=== PATIENT | female | born 1975 | race Caucasian/White ===

== ENCOUNTER 2019-03-07 08:40 | Inpatient (IN) | payer OTHER ==
[~2019-03-07] VITALS: Ht 160 cm; Wt 99.8 kg
[~2019-03-07 08:40] MED LIST: BUPIVACAINE 0.25% 30ML SDV INJ ONE; BUSPIRONE HCL5 MG PO; DIAZEPAM5 MG PO; FLUTICASONE PRO15 GM; PANTOPRAZOLE SO40 MG PO; TOPAMAX25 MG; TRAZODONE HCL100 MG; ZOLOFT50 MG PO
--- OUTSIDE RECORDS SUMMARY | 2019-03-07 08:51 | XMS REPORT | Clinical Summary ---
Author Author [facility] Address Unknown Phone Unavailable Care Team Providers Care Interventional Radiology Rn Name Role Phone Sharpless PCP Allergies Comments Active Allergy Reactions Severity Noted Date Sulfamethoxazole-Trimetho Hives High 11/02/2016 prim Ciprofloxacin Anaphylaxis High 11/02/2016 Crab Swelling 03/22/2017 Morphine Hives 09/13/2017 Penicillins Hives High 10/22/2016 Ceftriaxone Hives 11/05/2016 Sulfa (Sulfonamide Hives 03/22/2017 Antibiotics) Medications End Date Status Medication Sig Dispensed Refills Start Date Active vitamin Take 1 tablet 0 w/hwhmwve-dfjf-satrfu by mouth ( PLUS) 27 mg daily. iron- 1 mg Tab Active sertraline (ZOLOFT) 50 MG 200 mg by 0 tablet Subretinal route daily . Active clonazePAM (KLONOPIN) 1 Take 1 mg by 0 MG tablet mouth 3 (three) times daily as needed for Anxiety. Active traZODone (DESYREL) 50 MG Take 50 mg by 0 tablet mouth nightly . Active butalbital-acetaminophen- Take 1 tablet 0 caffeine (FIORICET, by mouth ESGIC) 50-325-40 mg per every 6 (six) tabletIndications: hours as migraine needed for Headaches. 09/15/2018 oxybutynin (DITROPAN) 5 Take 1 tablet 90 tablet 0 09/15/201 MG tablet (5 mg total) 7 by mouth 3 (three) times daily. Active Problems Problem Noted Date Lower abdominal pain 09/13/2017 Pulmonary emboli 05/24/2017 Fever, unspecified fever cause 05/24/2017 Preeclampsia in period 05/20/2017 Intraoperative bladder injury 05/06/2017 Abdominal pain 04/22/2017 Cephalalgia 11/27/2016 Overview: Overview: Current meds: Propanolol TID 11/27:pt called for complains of frequent migraine headache (every day), worsening sinus allergies and occasional nosebleeds. I discussed using saline nasal spray and flonase in addition to Zyrtec. I ordered fiorecet prn and propanolol 20mg TID for migraine ppx. If no improvement in migraine MAHMOOD frequency, then we will refer her to neurology. For nosebleed, she was advised to hold pressure, apply ice, use humidifier and moisturize nose. MFM note: Patient reports improving symptoms, only has headache every month. Plan to continue Propanolol Allergic rhinitis, seasonal 11/27/2016 Obesity with body mass index 30 or greater 10/24/2016 Overview: Overview: Limit wt gain in preg Depression, major, recurrent 10/24/2016 Overview: Overview: Current meds: Zoloft 50mg daily, Atarax PRN Reports stress related to custody of her children, was on zoloft 150mg, which was weaned down to 50mg daily prior to , self dc'd all meds (Klonopin 1.5mg daily, zoloft 50mg daily) at +UPT S/p MFM counseling-- Started on Zoloft 50mg daily, and atarax prn. Avoid Klonopin use in . Ordered and psychiatry consult 11/17: reports depressed mood, denies SI/HI, on zoloft 50mg daily; today increased her zoloft to 75 mg daily. Discussed that we would support titration of her zoloft dose if she has suboptimal response to this increased dose in about 4-6weeks. 03/11 MFM: Pt still with multiple stressors, seeing new counselor on Thursday. Optimistic that that visit will be productive. No change in Rx Chronic hypertension complicating or reason for care during 10/24/2016 Overview: Overview: Noted to have SBP in 140s at her initial visit. Watch BP closely. Baseline labs ordered. If mild range BP noted on future visit, order BP monitor and home BP monitoring On baby ASA testing plan to be determined later MFM: 03/11 BPs in normal range; On ASA Family History Medical History Relation Name Comments Depression Father Hypertension Father Kidney disease Father Liver disease Father Stroke Father Thyroid cancer Father Cancer Mother Thyroid cancer Sister Relation Name Status Comments Father Mother Sister Social History Date Tobacco Use Types Packs/Day Years Used Never Smoker Smokeless Tobacco: Never Used Alcohol Use Drinks/Week oz/Week Comments No Sex Assigned at Date Recorded Not on file Industry Job Start Date Occupation Not on file Not on file Not on file Travel End Travel History Travel Start No recent travel history available. Last Filed Vital Signs Not on file Plan of Treatment Not on file Results Not on fileafter 03/06/2018 Insurance Payer Benefit Subscriber ID Type Phone Address Plan / Group [employer] - [employer] CARE C[employer] xxxxxxxxxxx HMO/POS HMO/POS/OP EN ACCESS Advance Directives For more information, please contact: [facility] [address] [place] [phone] Date Inactivated Comments Code Status Date Activated 09/15/2017 8:54 PM Full Code 09/13/2017 4:44 AM This code status was determined by: Patient 05/26/2017 3:09 PM Full Code 05/24/2017 6:41 PM This code status was determined by: Patient 05/13/2017 3:28 PM Full Code 05/06/2017 12:23 PM This code status was determined by: Patient 04/23/2017 3:23 AM Full Code 04/22/2017 7:01 PM This code status was determined by: Patient 04/06/2017 3:38 AM Full Code 04/05/2017 11:53 PM This code status was determined by: Patient
--- OUTSIDE RECORDS SUMMARY | 2019-03-07 08:51 | XMS REPORT | Clinical Summary ---
Author Author [facility] Organization [place] [facility] Address Unknown Phone Unavailable Care Team Providers Care Mesh Cutter Name Role Phone Asked, No Pcp PCP Unavailable Allergies Comments Active Allergy Reactions Severity Noted Date Sulfamethoxazole-Trimetho 07/22/2018 prim Ciprofloxacin 07/22/2018 Levofloxacin 07/22/2018 Penicillins 07/22/2018 Ceftriaxone 07/22/2018 JUST CRABS Shellfish Derived 07/22/2018 Medications End Date Status Medication Sig Dispensed Refills Start Date Active benzonatate (TESSALON) Take 1 0 100 MG capsule capsule by 9 mouth 3 (three) times a day as needed. Active busPIRone (BUSPAR) 15 MG Take 1 tablet 5 tablet by mouth 2 9 (two) times a day. Active diazePAM (VALIUM) 5 MG Take 1 tablet 0 tablet by mouth 3 9 (three) times a day as needed. Active fluticasone (FLONASE) 50 1 spray by 7 mcg/actuation nasal spray Each Nare 9 route 2 (two) times a day. Active gabapentin (NEURONTIN) Take 1 0 300 mg capsule capsule by 9 mouth 3 (three) times a day. Active lidocaine (LIDODERM) 5 % Place 1 patch 11 on the skin 9 daily as needed. Active metoprolol succinate XL Take 25 mg by 0 (TOPROL-XL) 25 mg 24 hr mouth daily. tablet Active pantoprazole (PROTONIX) Take 1 tablet 1 40 MG EC tablet by mouth 9 daily. Active XARELTO 20 mg tablet Take 1 tablet 1 by mouth 9 daily. Active sertraline (ZOLOFT) 100 Take 2 4 MG tablet tablets by 8 mouth every morning. Active topiramate (TOPAMAX) 25 Take 25 mg by 0 MG tablet mouth 2 (two) times a day. Active traZODone (DESYREL) 50 MG Take 1 tablet 1 tablet by mouth 9 nightly. 01/31/2019 midodrine (PROAMATINE) Take 1 tablet 90 tablet 0 2.5 MG tablet (2.5 mg 9 total) by mouth 3 (three) times a day for 30 days. 02/01/2019 fludrocortisone Take 1 tablet 30 tablet 0 (FLORINEF) 0.1 mg tablet (0.1 mg 9 total) by mouth daily for 30 days. Active Problems Problem Noted Date Dizziness 12/29/2018 Encounters Care Team Description Date Type Specialty Jean Paul Ricci MD Al-Lahiq, Maha, MD Dizziness (Primary Dx) 12/29/2018 Emergency General Surgery - 01/01/2019 Areli Ledezma MD Other chest pain (Primary Dx) 07/22/2018 Emergency Emergency Medicine after 03/06/2018 Social History Date Tobacco Use Types Packs/Day Years Used Never Smoker Smokeless Tobacco: Never Used Alcohol Use Drinks/Week oz/Week Comments No Sex Assigned at Date Recorded Not on file Industry Job Start Date Occupation Not on file Not on file Not on file Travel End Travel History Travel Start No recent travel history available. Last Filed Vital Signs Time Taken Vital Sign Reading 01/01/2019 11:07 AM CDT Blood Pressure 105/54 01/01/2019 11:07 AM CDT Pulse 76 01/01/2019 11:07 AM CDT Temperature 36.9 C (98.4 F) 01/01/2019 11:07 AM CDT Respiratory Rate 16 01/01/2019 11:07 AM CDT Oxygen Saturation 92% - Inhaled Oxygen - Concentration 12/29/2018 12:59 PM CDT Weight 99.8 kg (220 lb) 12/29/2018 12:59 PM CDT Height 160 cm (5' 3") 12/29/2018 12:59 PM CDT Body Mass Index 38.97 Plan of Treatment Health Maintenance Due Date Last Done Comments CERVICAL CANCER SCREENING 1997 INFLUENZA VACCINE 05/19/2019 Procedures Comments Procedure Name Priority Date/Time Associated Diagnosis HC COMPLETE BLD COUNT Routine 12/31/2018 W/AUTO DIFF 6:[address] INTERNAL AUDITORY Routine 12/30/2018 CANALS / POSTERIOR FOSSA 2:37 PM CDT WO CONTRAST ECHOCARDIOGRAM 2D Routine 12/30/2018 COMPLETE W MMODE SPECTRAL 9:16 AM CDT COLOR DOPPLER (50121) HCG QUALITATIVE, URINE Routine 12/29/2018 SCREEN 4:27 PM CDT URINALYSIS SCREEN AND Routine 12/29/2018 MICROSCOPY, WITH REFLEX 4:27 PM CDT TO CULTURE URINE CULTURE Routine 12/29/2018 4:[address] HEAD WO CONTRAST STAT 12/29/2018 3:[address] ANGIOGRAM PE CHEST STAT 12/29/2018 3:52 PM CDT RESPIRATORY PATHOGEN Routine 12/29/2018 PANEL 3:18 PM CDT INFLUENZA ANTIGEN TEST, Routine 12/29/2018 REFLEX NEGATIVE TO RPP 3:18 PM CDT CREATINE KINASE, TOTAL STAT 12/29/2018 (CPK) 2:49 PM CDT ESTIMATED GFR STAT 12/29/2018 2:49 PM CDT B NATRIURETIC PEPTIDE STAT 12/29/2018 2:49 PM CDT TROPONIN STAT 12/29/2018 2:49 PM CDT COMPREHENSIVE METABOLIC STAT 12/29/2018 PANEL 2:49 PM CDT PARTIAL THROMBOPLASTIN STAT 12/29/2018 TIME (PTT) 2:49 PM CDT PROTHROMBIN TIME WITH INR STAT 12/29/2018 2:49 PM CDT HC COMPLETE BLD COUNT STAT 12/29/2018 W/AUTO DIFF 2:49 PM CDT ECG ED PRELIMINARY Routine 12/29/2018 INTERPRETATION 2:08 PM CDT ECG 12-LEAD STAT 12/29/2018 12:59 PM CDT TROPONIN Timed 07/22/2018 3:11 PM CDT D-DIMER STAT 07/22/2018 12:35 PM CDT TROPONIN STAT 07/22/2018 12:35 PM CDT ESTIMATED GFR STAT 07/22/2018 12:35 PM CDT B NATRIURETIC PEPTIDE STAT 07/22/2018 12:35 PM CDT CREATINE KINASE, TOTAL STAT 07/22/2018 (CPK) 12:35 PM CDT COMPREHENSIVE METABOLIC STAT 07/22/2018 PANEL 12:35 PM CDT PARTIAL THROMBOPLASTIN STAT 07/22/2018 TIME (PTT) 12:35 PM CDT PROTHROMBIN TIME WITH INR STAT 07/22/2018 12:35 PM CDT HC COMPLETE BLD COUNT STAT 07/22/2018 W/AUTO DIFF 12:35 PM CDT XR CHEST 1 VW PORTABLE STAT 07/22/2018 12:00 PM CDT ECG ED PRELIMINARY Routine 07/22/2018 INTERPRETATION 11:33 AM CDT ECG 12-LEAD STAT 07/22/2018 11:07 AM CDT after 03/06/2018 Results * CBC with platelet and differential (12/31/2018 6:00 AM CDT) Only the most recent of 3 results within the time period is included. WBC 10.13 4.50 - 11.00 k/uL [facility] RBC 4.06 (L) 4.20 - 5.50 m/uL [facility] HGB 12.2 12.0 - 16.0 g/dL [facility] HCT 37.6 37.0 - 47.0 % [facility] MCV 92.6 82.0 - 100.0 fL [facility] MCH 30.0 27.0 - 34.0 pg [facility] MCHC 32.4 31.0 - 37.0 g/dL [facility] RDW - SD 49.7 37.0 - 55.0 fL [facility] MPV 9.9 8.8 - 13.2 fL [facility] Platelet count 232 150 - 400 k/uL [facility] Nucleated RBC 0.00 /100 WBC [facility] Neutrophils 54.1 39.0 - 69.0 % [facility] Lymphocytes 34.7 25.0 - 45.0 % [facility] Monocytes 5.6 0.0 - 10.0 % [facility] Eosinophils 3.4 0.0 - 5.0 % [facility] Basophils 0.7 0.0 - 1.0 % [facility] Specimen Blood Performing Organization Address City/State/Zipcode Phone Number [facility] [place] [id number] [place] [address] [place] [address] PATHOLOGY AND GENOMIC MEDICINE [facility] [address] [place] [address] * CT Internal Auditory Canals / Posterior Fossa Wo Contrast (12/30/2018 2:37 PM CDT) Specimen Narrative Performed At EXAMINATION:CT INTERNAL AUDITORY CANALS POSTERIOR FOSSA WO CONTRAST [facility] CLINICAL HISTORY:Hearing lossconductive COMPARISON:None. FINDINGS: 1.There is no abnormality demonstrated in the external auditory canals or in the inner ear structures. The mastoids are clear. 2.There is an unusual appearance of the spiculated bone or calcification along the medial aspect of the head of the malleus and medial aspect of the body of the incus bilaterally. This appearance is very symmetric but definitely atypical. The etiology and significance of this appearance is not known but could explain a conductive hearing loss.. This could indicate suspensory ligament ossification. 3.There is thinning of the superior aspects of the superior semicircular canals bilaterally with questionable dehiscence in the area of the groove for the superior petrosal sinus on the left side.. 4.There is no other significant finding. IMPRESSION: Unusual appearance of the ossicles symmetrically, bilaterally of uncertain etiology. Question of superior 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 [facility]-[id number] Procedure Note Hm Interface, Radiology Results Incoming - 12/30/2018 5:32 PM CDT EXAMINATION: CT INTERNAL AUDITORY CANALS POSTERIOR FOSSA WO CONTRAST CLINICAL HISTORY: Hearing loss conductive COMPARISON: None. FINDINGS: 1. There is no abnormality demonstrated in the external auditory canals or in the inner ear structures. The mastoids are clear. 2. There is an unusual appearance of the spiculated bone or calcification along the medial aspect of the head of the malleus and medial aspect of the body of the incus bilaterally. This appearance is very symmetric but definitely atypical. The etiology and significance of this appearance is not known but could explain a conductive hearing loss.. This could indicate suspensory ligament ossification. 3. There is thinning of the superior aspects of the superior semicircular canals bilaterally with questionable dehiscence in the area of the groove for the superior petrosal sinus on the left side.. 4. There is no other significant finding. IMPRESSION: Unusual appearance of the ossicles symmetrically, bilaterally of uncertain etiology. Question of superior 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 [facility]-[id number] Performing Organization Address City/State/Zipcode Phone Number [address] [address] [place] [address] * Echocardiogram complete w contrast and 3D if needed (12/30/2018 9:16 AM CDT) AoV Area, Vmax 3.08 cm2 [facility] AoV Area, VTI 3.48 cm2 [facility] AoV Mean PG 2.65 mmHg [facility] AoV Peak PG 5.69 mmHg [facility] AoV Vmax 1.19 m/s [facility] AoV VTI 0.18 m [facility] BSA [place] 2.18 m2 [facility] BSA 2.01 m2 [facility] IVS,d 0.86 cm [facility] IVS/LVPW,2D 0.92 [facility] LV,d 3.77 cm [facility] LV EF,2D 69.12 % [facility] LV EF,A2C 54.60 % [facility] LV EF,A4C 66.70 % [facility] LV EF,BP 62.73 % [facility] [place],d A2C 6.85 cm [facility] [place],d A4C 7.57 cm [facility] [place],s A2C 6.05 cm [facility] [place],s A4C 6.15 cm [facility] LV,s 2.55 cm [facility] LV SV,A2C 36.50 % [facility] LV SV,A4C 45.06 % [facility] LV SV,BP 44.24 % [facility] LV Vol,d A2C 66.85 mL [facility] LV Vol,d A4C 67.55 ml [facility] LV Vol,d BP 70.53 ml [facility] LV Vol,s A2C 30.35 mL [facility] LV Vol,s A4C 22.49 ml [facility] LV Vol,s BP 26.28 nl [facility] LVOT area 3.05 cm2 [facility] LVOT Diam,S 1.97 cm [facility] LVOT Vmax 1.20 m/s [facility] LVOT VTI 0.21 m [facility] LVPWD,d 0.93 cm [facility] MV E A ratio 0.88 [facility] AoV area i VTI 1.73 cm2/m2 [facility] BSA [place] LV SI MOD BP 21.97 ml/m2 [facility] BSA [place] LV Vol Index s 35.02 ml/m2 [facility] bpmod BSA [place] PV Vmn 13.05 m/s [facility] BMI 38.97 kg/m2 [facility] E wave 188.09 msec [facility] decelartion time MV Peak A Fan 0.77 m/s [facility] MV valve area p 4.03 cm2 [facility] 1/2 method MV Peak E Fan 0.68 m/s [facility] MV stenosis 54.55 ms [facility] pressure 1/2 time AV LVOT peak 5.74 mmHg [facility] gradient LV SYS VOL 23.38 ml [facility] LV PARKER VOL 60.71 ml [facility] LA area s A4C 16.02 cm2 [facility] LV SI Teich 2D 18.54 ml/m2 [facility] LV SV Teich 2D 37.33 ml [facility] LV Vol s Teich 23.38 ml [facility] PSAX LVOT SI 31.56 ml/m2 [facility] BSA [place] 2.16 m2 [facility] AoV Cusp sep 1.47 [facility] AoV Vmn 0.76 [facility] IVS s 2D 1.47 [facility] LV FS Teich 2D 32.41 [facility] MV AE ratio 1.13 [facility] LA Ao Ratio 1.27 [facility] Mmode LV FS Cube 2D 32.41 [facility] LVOT Vmn 0.81 [facility] Pt Size 160.02 [facility] Pt Wt 99.79 [facility] PV AT 122.74 msec [facility] Aov area Vmn 3.25 cm2 [facility] LVOT mean grad 2.91 mmHg [facility] AoV area I VMN 1.61 cm2/m2 [facility] bsa IVS pct thck 70.96 % [facility] PLAX LV SI Cube 2D 18.36 ml/m2 [facility] LV SV Cube 2D 36.97 ml [facility] LV vol d cube 53.50 ml [facility] 2D LV vol s cube 16.52 ml [facility] 2D LVPW pct thck 51.82 % [facility] PLAX LVPW s PLAX 1.42 cm [facility] MV Decel slope 3.63 m/s2 [facility] Velocity Ratio 1.01 m/s [facility] (V1/V2) EF 61.49 % [facility] E/A ratio 0.88 [facility] LV Systolic 15.10 mL/m2 [facility] Volume Index LV Diastolic 33.26 mL/m2 [facility] Volume Index LA volume 52.00 cm3 [facility] LA Volume Index 25.87 mL/m2 [facility] LA Area d A4C 36 cm2 [facility] LA diam s 3.50 cm [facility] Aortic Root 2.80 cm [facility] D E excurs 1.20 [facility] E f slope 0.06 [facility] E prime lat 0.12 [facility] E isamar sept 0.08 [facility] PV acc T slope 7.00 [facility] Specimen Narrative Performed At [facility] Left ventricular systolic function is normal. Left Ventricular ejection fraction is 55 - 60%. Spectral Doppler shows impaired relaxation pattern of left ventricular diastolic filling. Doppler examination of the AV,MV,TR and PV did mot show any significant valvular regurgitation or stenosis. Normal right ventricular size and global function. Performing Organization Address City/State/Zipcode Phone Number [facility] [address] [place] [address] * Urinalysis screen and microscopy, with reflex to culture (12/29/2018 4:27 PM CDT) Specimen site Clean catch [facility] Color, UA Yellow [facility] Appearance, UA Slightly-Cloudy [facility] Specific 1.023 1.001 - 1.035 [place] gravity, UA [facility] pH, UA 6.0 5.0 - 8.5 [facility] Protein, UA Negative Negative [facility] Glucose, UA Negative Negative [facility] Ketones, UA Negative Negative [facility] Bilirubin, UA Negative Negative [facility] Blood, UA Small (A) Negative [facility] Nitrite, UA Negative Negative [facility] Urobilinogen, Negative <2.0 [facility] Leukocyte Negative Negative [place] esterase, UA [facility] Epithelial Many /HPF [place] cells, UA [facility] WBC, UA 0-5 0 - 4 /HPF [facility] RBC, UA 11-20 (H) 0 - 5 /HPF [facility] Bacteria, UA None seen None seen [facility] Yeast, UA None seen [facility] Yeast with None seen [place] [facility] Specimen Urine Performing Organization Address [facility] Phone Number [address] [place] [address] PATHOLOGY AND GENOMIC MEDICINE [address] * hCG qualitative, urine screen (12/29/2018 4:27 PM CDT) hCG Negative Negative [place] qualitative, Comment: [facility] urine The manufacturers stated [facility] sensitivity of HcG test for serum is >/=10 mIU/ml and urine is >/=20mIU/ml. Specimen Urine Performing Organization Address [facility] Cent[facility]ode Phone Number [address] [place] [address] PATHOLOGY AND GENOMIC MEDICINE [address] * Urine culture (12/29/2018 4:27 PM CDT) Urine culture SEE COMMENTComment: [place] Bacteriuria screen negative. [facility] Specimen Urine Performing Organization Address City/State/Zipcode [place] [address] [place] [address] PATHOLOGY AND GENOMIC MEDICINE [facility] [address] [place] [address] [facility] * CT Angiogram Pe Chest (12/29/2018 3:52 PM CDT) Specimen Narrative Performed At [facility] PE CHEST CLINICAL HISTORY: hx of PE on Xarelto with SOBCP TECHNIQUE: CT angiographic images of the chest were obtained during intravenous administration of iodinated contrast. Computerized reformatted images and 3-D MIP images were also obtained and archived (CT pulmonary embolus protocol). CT imaging was performed with iterative reconstruction techniques and/or automated exposure control to reduce radiation dose. COMPARISON: July 22, 2018 chest x-ray FINDINGS: Pulmonary arteries are adequately opacified and there are no filling defects identified to suggest acute pulmonary embolus. The thoracic aorta is of normal caliber. There is no identifiable coronary artery calcification. There are no pleural or pericardial effusions. No pulmonary infiltrates or nodules. Limited scans through the upper abdomen demonstrate clips from prior cholecystectomy. IMPRESSION: No evidence of acute pulmonary embolus or other acute finding. [id number] Procedure Note Interface, Radiology Results Incoming - 12/29/2018 4:12 PM CDT EXAMINATION: CT ANGIOGRAM PE CHEST CLINICAL HISTORY: hx of PE on Xarelto with SOB CP TECHNIQUE: CT angiographic images of the chest were obtained during intravenous administration of iodinated contrast. Computerized reformatted images and 3-D MIP images were also obtained and archived (CT pulmonary embolus protocol). CT imaging was performed with iterative reconstruction techniques and/or automated exposure control to reduce radiation dose. COMPARISON: July 22, 2018 chest x-ray FINDINGS: Pulmonary arteries are adequately opacified and there are no filling defects identified to suggest acute pulmonary embolus. The thoracic aorta is of normal caliber. There is no identifiable coronary artery calcification. There are no pleural or pericardial effusions. No pulmonary infiltrates or nodules. Limited scans through the upper abdomen demonstrate clips from prior cholecystectomy. IMPRESSION: No evidence of acute pulmonary embolus or other acute finding. [id number] Performing Organization Address City/State/Zipcode Phone Number [facility] [address] [place] [address] * CT Head Wo Contrast (12/29/2018 3:52 PM CDT) Specimen Narrative Performed At Examination: CT HEAD WO CONTRAST [facility] Clinical History: persistent vertigo Comparison: NONE Technique: Multiple axial CT images of the brain are obtained without the use of intravenous contrast. CT scans are performed using radiation dose reduction techniques. Technical factors are evaluated and adjusted to ensure appropriate moderation of exposure. Automated dose management technology is applied to adjust radiation dose to minimize exposure, while achieving a diagnostic image. FINDINGS: The visualized paranasal sinuses demonstrates bilateral maxillary sinusitis. The cardiac silhouette is normal in size. The pulmonary vasculature is within normal limits. The lung zones have no focal area of consolidation. There is no pleural effusion or pneumothorax. IMPRESSION: 1. There is no acute cardiopulmonary disease. . The mastoid air cells are well aerated. The globes and optic nerves are unremarkable. The ventricles are symmetrical. There is no mass effect or any midline shift. There is no evidence of any extra-axial fluid collection. There is no parenchymal hemorrhage or mass lesion. There is maintenance of the ball-white junction. The posterior fossa does not demonstrate any masses. IMPRESSION: 1. There Is no acute intracranial abnormality. [id number] Procedure Note Interface, Radiology Results Incoming - 12/29/2018 4:10 PM CDT Examination: CT HEAD WO CONTRAST Clinical History: persistent vertigo Comparison: NONE Technique: Multiple axial CT images of the brain are obtained without the use of intravenous contrast. CT scans are performed using radiation dose reduction techniques. Technical factors are evaluated and adjusted to ensure appropriate moderation of exposure. Automated dose management technology is applied to adjust radiation dose to minimize exposure, while achieving a diagnostic image. FINDINGS: The visualized paranasal sinuses demonstrates bilateral maxillary sinusitis. The cardiac silhouette is normal in size. The pulmonary vasculature is within normal limits. The lung zones have no focal area of consolidation. There is no pleural effusion or pneumothorax. IMPRESSION: 1. There is no acute cardiopulmonary disease. . The mastoid air cells are well aerated. The globes and optic nerves are unremarkable. The ventricles are symmetrical. There is no mass effect or any midline shift. There is no evidence of any extra-axial fluid collection. There is no parenchymal hemorrhage or mass lesion. There is maintenance of the ball-white junction. The posterior fossa does not demonstrate any masses. IMPRESSION: 1. There Is no acute intracranial abnormality. [id number] Performing Organization Address City/State/Zipcode Phone Number [facility] [address] [place] [address] * Respiratory pathogen panel (12/29/2018 3:18 PM CDT) Pathologist [facility] Respiratory Negative for all pathogens [place] pathogen panel tested: [facility] Negative for Adenovirus [facility] Negative for Coronavirus HKU1 Negative for Coronavirus NL63 Negative for Coronavirus 229E Negative for Coronavirus OC43 Negative for Human Metapneumovirus Negative for Rhinovirus/Enterovirus Negative for Influenza A Negative for Influenza A/H1 Negative for Influenza A/H3 Negative for Influenza A/H1-2009 Negative for Influenza B Negative for Parainfluenza Virus 1 Negative for Parainfluenza Virus 2 Negative for Parainfluenza Virus 3 Negative for Parainfluenza Virus 4 Negative for Respiratory Syncytial Virus Negative for Bordetella pertussis Negative for Chlamydophila pneumoniae Negative for Mycoplasma pneumoniae This real-time PCR assay detects the presence of nucleic acids (RNA or DNA) for the respiratory pathogens listed. A result of "Not-detected" does not exclude the possibility of the presence of one or more pathogens at concentrations less than the detectable limits of the assay. Comment: Specimen Information Specimen Source: Nares Specimen Site: Left Specimen Nares - Left Performing Organization Address City/State/Zipcode Phone Number [facility] DEPARTMENT OF [address] [place] [address] PATHOLOGY AND GENOMIC MEDICINE [address] * Influenza antigen test, reflex negative to RPP (12/29/2018 3:18 PM CDT) Pathologist [facility] Influenza Negative for Influenza A/B [place] antigen antigen. [facility] Comment: [facility] Specimen Information Specimen Source: Nares Specimen Site: Left Specimen Nares - Left Performing Organization Address City/State/Zipcode Phone Number [facility] [place] [place] [id number] [place] [address] [place] [address] PATHOLOGY AND GENOMIC MEDICINE [facility] [id number] [place] [address] [place] [address] [facility] * Estimated GFR (12/29/2018 2:49 PM CDT) Only the most recent of 2 results within the time period is included. [facility] Estimated GFR 79 mL/min/1.73 m2 [place] Comment: [facility]UndianeNorthern [facility] Hospitalashley [facility] rpretation G1 >=90 Normal or high G2 60-89Mildly decreased [id number] Mildly to moderately decreased [id number] Moderately to severely decreased G4 15-29Severely decreased G5 <15Kidney failure The eGFR was calculated using the Chronic Kidney Disease Epidemiology Collaboration (CKD-EPI) equation. Interpretation is based on recommendations of the National Kidney Foundation-Kidney Disease Outcomes Quality Initiative (NKF-KDOQI) published in 2014. Specimen Plasma specimen Performing Organization Address [facility] Centercode Phone Number [address] [place] [address] PATHOLOGY AND [facility] MEDICINE [address] * Troponin (12/29/2018 2:49 PM CDT) Only the most recent of 3 results within the time period is included. [facility] Troponin <0.300 0.000 - 0.300 ng/mL [place] Comment: [facility]ITALAsia 0.30 - 1.49 [facility] ng/mlMay indicate increased risk of acute coronary syndrome. >=1.5 ng/ml Consistent with acute myocardial infarction. The diagnostic value of a single normal or non-diagnostic result is questionable.Serial samples at 2-6 hour intervals are required to rule out acute myocardial injury. Specimen Plasma specimen Performing Organization Address [facility] [place] Phone Number [address] [place] [address] PATHOLOGY AND GENOMIC MEDICINE [address] * Partial thromboplastin time, activated (12/29/2018 2:49 PM CDT) Only the most recent of 2 results within the time period is included. [facility] PTT 26.7 23.0 - 36.0 sec [place] Comment: [facility] PTT therapeutic range for [facility] unfractionated heparin is 61.0-112.0 seconds which corresponds to Anti-Xa 0.3-0.7 U/ml. Specimen Blood Performing Organization Address [facility] [place]/[facility] Phone Number [address] [place] [address] PATHOLOGY AND [facility] MEDICINE [address] * Prothrombin time with INR (12/29/2018 2:49 PM CDT) Only the most recent of 2 results within the time period is included. Prothrombin 15.8 (H) 11.5 - 14.5 sec [facility]ly [facility] INR 1.3 WARNER Comment: [facility] Normalized [facility] Ratio (INR) is a therapeutic monitoring tool for patients who are stable on oral anticoagulant therapy. An INR of 2.0-3.0 is suggested for deep vein thrombosis/pulmonary embolism. Specimen Blood Performing Organization Address [facility] [place]/[facility] Phone Number [address] [place] [address] PATHOLOGY AND [address] * B natriuretic peptide (12/29/2018 2:49 PM CDT) Only the most recent of 2 results within the time period is included. Pathologist [facility] BNP 3 0 - 100 pg/mL [facility] Specimen Blood Performing Organization Address [facility] [place]/[facility] Phone Number [address] [place] [address] PATHOLOGY AND [address] * Creatine kinase, total (CPK) (12/29/2018 2:49 PM CDT) Only the most recent of 2 results within the time period is included. Creatine kinase 427 (H) 26 - 192 U/L [facility] Specimen Plasma specimen Performing Organization Address City/[facility] Phone Number [address] [place] [address] PATHOLOGY AND [address] * Comprehensive metabolic panel (12/29/2018 2:49 PM CDT) Only the most recent of 2 results within the time period is included. Sodium 138 135 - 148 mEq/L [facility] Potassium 4.0 3.5 - 5.0 mEq/L [facility] Chloride 104 98 - 112 mEq/L [facility] CO2 22 (L) 24 - 31 mEq/L [facility] Anion gap 12@ANIO 7 - 15 mEq/L [facility] BUN 10 6 - 20 mg/dL [facility] Creatinine 0.90 0.50 - 0.90 mg/dL [facility] Glucose 92 65 - 99 mg/dL [facility] Calcium 9.5 8.3 - 10.2 mg/dL [facility] Protein 7.6 6.3 - 8.3 g/dL [place] Comment: [facility] 4.6-7.0 g/dL 1 week 4.4-7.6 g/dL 7 months-1year 5.1-7.3 g/dL 1-2 years5.6-7 .5 g/dL >3 years6.0-8 .0 g/dL 18-150 6.3-8.3 g/dL Albumin 4.0 3.5 - 5.0 g/dL [facility] A/G ratio 1.1 0.7 - 3.8 [facility] Alkaline 77 35 - 104 U/L [place] phosphatase [facility] AST 78 (H) 10 - 35 U/L [facility] ALT 42 5 - 50 U/L [facility] Total bilirubin 0.5 0.0 - 1.2 mg/dL [facility] Specimen Plasma specimen Performing Organization Address City/State/Zipcode Phone Number [facility] [phone] [place] [address] [place] [address] PATHOLOGY AND GENOMIC MEDICINE [address] * ECG ED Preliminary Interpretation - Not an Order (12/29/2018 2:08 PM CDT) Only the most recent of 2 results within the time period is included. 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 Ventricular 76 [facility] rate Atrial rate 76 [facility] CO interval 138 [facility] QRSD interval 72 [facility] QT interval 390 [facility] QTC interval 438 [facility] P axis 1 4 [facility] QRS axis 1 6 [facility] T wave axis -14 [facility] EKG impression Normal sinus rhythm-Low [facility] voltage QRS-Nonspecific ST and T wave abnormality-Abnormal ECG-In automated comparison with ECG of 22-JUL-2018 11:07,-premature ventricular complexes are no longer present-T wave inversion now evident in Inferior leads-Nonspecific T wave abnormality, worse in Anterior leads- Specimen Narrative Performed At Performing Organization Address City/State/Zipcode Phone Number [facility] [place] [address] [place] [address] * D-dimer (07/22/2018 12:35 PM CDT) D-dimer <0.27 0.00 - 0.40 ug/mL [facility] Comment: FEU DEPARTMENT OF Units are ug/ml Fibrinogen PATHOLOGY AND Equivalent Unit. GENOMIC When combined with low MEDICINE clinical probability, D-dimer results of less than 0.5 ug/ml FEU have a good negativepredictive value in excluding PE or DVT. For D-dimer results greater than 0.5ug/ml FEU further testing is indicated if PE or DVT is suspectedclinically. Elevated D-dimer results have been reported in DVT, PE, and DIC cases and may indicate the presence of a clot. D-dimer results may be elevated due to old age, , inflammatory diseases, trauma, post-operative states, sepsis, and malignancies. Specimen Blood Performing Organization Address City/State/Zipcode [place] [address] [place] [address] PATHOLOGY AND GENOMIC MEDICINE * XR Chest 1 Vw Portable (07/22/2018 12:00 PM CDT) Specimen Narrative Performed At EXAMINATION:XR CHEST 1 VW PORTABLE [facility] CLINICAL HISTORY:chest pain COMPARISON:03/16/2014 IMPRESSION: The lungs and pleural spaces are clear.The cardiomediastinal silhouette is within normal limits.There is no significant skeletal finding. [id number] Procedure Note Hm Interface, Radiology Results Incoming - 07/22/2018 12:47 PM CDT EXAMINATION: XR CHEST 1 VW PORTABLE CLINICAL HISTORY: chest pain COMPARISON: 03/16/2014 IMPRESSION: The lungs and pleural spaces are clear. The cardiomediastinal silhouette is within normal limits. There is no significant skeletal finding. [id number] Performing Organization Address City/[facility]/Zipcode Phone Number [facility] [address] [place] [address] after 03/06/2018 Insurance Type Payer Benefit Subscriber ID Effective Phone Address Plan / Dates Group HMO CIG[employer]IZ[employer]ETH CIGELIZABETH OPEN xxxxxxxxxxx [id number] ACCESS/NET resent WORK Guarantor Name Account Relation to Date of Phone Billing Address Type Patient ELLIE BRADSHAW Personal/F 1975 [facility] [place] [address] ([place]) [place] [address] Advance Directives Patient has advance care planning documents on file. For more information, pepe ramirez contact: Timmy Do [address] [place] [address]
--- OUTSIDE RECORDS SUMMARY | 2019-03-07 08:52 | XMS REPORT ---
Author Author [facility] Address Unknown Phone Unavailable Care Team Providers Care Activities Attendant Name Role Phone HARIKA FULLER Unavailable Unavailable JOSE ANGEL GIBSON Unavailable Unavailable FILIBERTO RUBI Unavailable Unavailable CHAVO MEZA Unavailable Unavailable CHEYENNE NEWMAN Unavailable Unavailable JONNIE MURPHY Unavailable Unavailable Payers Payer Name Policy Type Policy Number Effective Date Expiration Date Problems This patient has no known problems. Allergies, Adverse Reactions, Alerts Allergy Name Allergy Type Status Severity Reaction(s) Onset Date Inactive Date Treating Clinician Comments levofloxacin DA Active KS 2018-12-21 00:00:00 sulfamethoxazole DA Active 2018-08-03 00:00:00 trimethoprim DA Active 2018-08-03 00:00:00 pseudoephedrine HCl DA Active U 2018-08-01 00:00:00 ceftriaxone sodium DA Active KS 2018-08-01 00:00:00 ciprofloxacin HCl DA Active KS 2018-08-01 00:00:00 Penicillins DA Active SV 2018-08-01 00:00:00 shellfish derived DA Active KS 2018-08-01 00:00:00 pseudoephedrine HCl DA Active U 2012-01-27 00:00:00 ceftriaxone sodium DA Active KS 2012-01-27 00:00:00 ciprofloxacin HCl DA Active KS 2012-01-27 00:00:00 Penicillins DA Active SV 2012-01-27 00:00:00 lorazepam DA Active MO 2012-01-27 00:00:00 epinephrine DA Active SV 2012-01-27 00:00:00 shellfish derived DA Active KS 2012-01-27 00:00:00 Medications This patient has no known medications. Encounters Start Date/Time End Date/Time Encounter Type Admission Type Attending [facility] Facility Care Department Encounter ID 2017-08-19 00:00:00 2017-08-19 00:00:00 Outpatient [facility] [id number] 2017-08-04 15:41:24 2017-08-04 15:41:24 Emergency [facility] [id number] 2017-08-04 10:55:06 2017-08-04 10:55:06 Outpatient [facility] [id number] 2017-06-30 12:38:46 2017-06-30 12:38:46 Outpatient [facility] [id number] Results Test Description Test Time Test Comments Text Results Atomic Results Result Comments CORTISOL 2018-12-26 10:07:00 CORTISOL (test code=CORTR) 25.0 ug/dL () Cortisol AM 6.2 - 19.4 Cortisol PM 2.3 - 11.9Performed At: [address] [id number] Romero MD Ph:[phone] COMMENTS: Cortisol level 1 hr s/p cosyntropin [id number] 10:07:00* Test Item Value Reference Range Comments CORTISOL (test code=CORTR) 22.7 ug/dL () Cortisol AM 6.2 - 19.4 Cortisol PM 2.3 - 11.9Performed At: [address] [id number] Romero MD Ph:[phone] COMMENTS: Cortisol level 30 min s/p cosyntropin [id number] 10:07:00* Test Item Value Reference Range Comments CORTISOL (test code=CORTR) 14.0 ug/dL () Cortisol AM 6.2 - 19.4 Cortisol PM 2.3 - 11.9Performed At: [address] [place], [place] [id number] Martin Romero MD Ph:[phone] COMMENTS: Cortisol level immediately before administering Cosyntropin IV- US HEAD AND [id number] 13:53:00 Name: SHELLIE OTERO [facility] [place] : 1975 Age/S: 43 / F [address] [place] [address] Blvd Unit #: [id number] Loc: [place] [address] Phys: Belinda Ivey-Tyler Acct: [id number] Dis Date: Status: ADM IN PHONE #: [phone] Exam Date: 12/25/2018 1117 FAX #: [phone] Reason: thyroid nodule EXAMS: CPT CODE: [id number] US HEAD AND NECK 93113 PROCEDURE: THYROID ULTRASOUND. INDICATION: Incidental discovery of a left thyroid nodule on previous CT scans of the chest. COMPARISON: Chest CT of 12/22/2018. TECHNIQUE: Sonographic evaluation of the thyroid gland is performed using high resolution B-mode and supplemental Doppler imaging. FINDINGS: The right lobe measures 4.7 x 1.9 cm in sagittal plane. There is mild generalized enlargement with heterogeneous echotexture. A mixed echogenicity oblong nodule is identified in the inferior third of the right lobe with a nodule measuring 1.0 x 0.8 x 0.6 cm. This is wider than tall with smooth margins. TI-RADS score=3. The left thyroid lobe measures 4.7 x 1.8 cm in sagittal plane. The previously described CT abnormality corresponds to an oval, mixed echogenicity, nearly isoechoic solid mass with smooth margins measuring 1.9 x 1.5 x 1.2 cm. The lesion is wider than it is tall. Left lobe mass TI-RADS score=3. IMPRESSION: 1. The incidentally discovered mass in the left lobe of the thyroid measures up to 1.9 cm, with ACR TI-RADS score=3. 2. Incidental discovery of a 1.0 cm right thyroid mass with ACR TI-RADS score=3. 3. Follow-up ultrasound is recommended in one year. [employer] TI-RADS Level Reference: TI-RADS Level=1: Benign. No FNA required. TI-RADS Level=2: Not suspicious. No FNA required. TI-RADS Level=3: Mildly suspicious. If > =1.5 cm follow up at 1,3 and 5 years. If >2.5 cm, FNA recommended. TI-RADS Level=4: Moderately suspicious. If >=1cm follow up at 1,2,3 and 5 years. If >1.5cm, FNA recommended. TI-RADS Level=5: Highly suspicious. If > 0.5cm follow up annually for up to 5 years. If > 1cm FNA. SL:01 PAGE 1 Signed Report (CONTINUED) Name: SHELLIE OTERO [facility] : 1975 Age/S: 43 / F [address] [place] [address] Unit #: [id number] Loc: [place] [address] Phys: Bleinda Ivey Acct: [id number] Dis Date: Status: ADM IN PHONE #: [phone] Exam Date: 12/25/2018 1117 FAX #: [phone] Reason: thyroid no dule EXAMS: CPT CODE: [id number] HEAD AND NECK 66960 <Continued> at 1353 Reported and signed by: Jung Peralta M.D. CC: Belinda Ivey; Rosa Currie MD; Sukhwinder Bianchi MD Technologist: Maite Oliver RDMS(AB)(OB) Trnscb Date/Time: 12/25/2018 (0293) [facility] Orig Print D/T: S: 12/25/2018 (0263) Probe: PAGE 2 Signed Report [id number] 18:50:00* Test Item Value Reference Range Comments AMYLASE (test code=GRACIA) 38 UNITS/L 25-115 [id number] 18:50:00* Test Item Value Reference Range Comments LIPASE (test code=LIP) 243 IUnit/L 73-393 - XR [id number] 15:54:00 FAX: Roas Guevara [phone] Burn[place]: St: ADM FAX: Sukhwinder Bianchi MD [phone] Name: SHELLIE OTERO [facility] : 1975 Age/S: 43/F [address] [place] [address] Unit #: [id number] Loc: G.6621 [place] [address] Phys: Sukhwinder Bianchi MD Acct: [id number] Dis Date: Status: ADM IN PHONE #: [phone] Exam Date: 12/24/2018 1226 FAX #: [phone] Reason: DYSPHAGIA EXAMS: CPT CODE: [id number] XR ESOPHAGUS 79694 ESOPHAGRAM: HISTORY: 43-year-old female with dysphagia. Hemoptysis. COMPARISON EXAMS: None available. TECHNIQUE: Regular barium was given by mouth and intermittent fluoroscopic observation was made. Multiple spot films were obtained. TOTAL FLUOROSCOPY TIME: 3.2 minutes. REFERENCE AIR KERMA: 96.6 mGy. FINDINGS: Initial swallows were observed. There was premature spill of contents over the base of the tongue and into the valleculae and the piriform sinuses prior to initiation of the swallowing reflex. The bolus appeared fragmented. There appear to be some oropharyngeal incoordination. No aspiration identified with the thin liquid barium. The esophagus has a normal appearance without evidence of masses or regions of narrowing. The mucosal pattern is grossly normal. No evidence of hiatal hernia. With the patient supine, no reflux was identified. The gastric outlet is grossly normal. IMPRESSION: 1. Delayed swallowing reflex with premature spillage of contents into the hypo pharynx. 2. No aspiration identified. 3. Otherwise negative es ophagram. SL:01 Electronically S igned by Jae Peralta on 12/24/2018 at 1 254 Reported and signed by: Jung dominguez M.D. PAGE 1 Signed Report (CONTINUED) FAX: Rosa Guevara [phone] [place]: St: [facility] FAX: Sukhwinder Bianchi MD [phone] Name: SHANNASHELLIE SHEILA [facility] [place] : 1975 Age/S: 43/F [address] [place] [address] Unit #: [id number] Loc: [address] [address] Phys: Sukhwinder Bianchi MD Acct: [id number] Dis Date: Status: ADM IN PHONE #: [phone] Exam Date: 12/24/2018 1226 FAX #: [phone] Reason: DYSPHAGIA EXAMS: CPT CODE: [id number] XR ESOPHAGUS 11014 <Continued> CC: Rosa Currie MD; Sukhwinder Bianchi MD Technologist: RT Maryellen(R) Trnscrd Date/Time/By: 12/24/2018 (9693) : By: Richard.[facility]/Richard.[facility] Orig Print D/T: S: 12/24/2018 (9805) PAGE 2 Signed Report VITAMIN [id number] 06:16:00* Test Item Value Reference Range Comments VITAMIN B12 (test code=VITB12) 345 pg/mL 193-986 [id number] 06:16:00* Test Item Value Reference Range Comments CORTISOL (test code=CORTR) 3.9 ug/dL () Cortisol AM 6.2 - 19.4 Cortisol PM 2.3 - 11.9Performed At: [facility] [id number] Martin Romero MD Ph:[phone] - MRI BRAIN W/O [id number] 16:06:00 FAX: Rosa Guevara [phone] [place]: St: ADM FAX: Sukhwinder Bianchi MD [phone] Name: SHELLIE OTERO [facility] : 1975 Age/S: 43/F [address] [place] [address] Unit #: [id number] Loc: G.[address] [place] [address] Phys: Sukhwinder Bianchi MD Acct: [id number] Dis Date: Status: ADM IN PHONE #: [phone] Exam Date: 12/23/2018 1559 FAX #: [phone] Reason: vertigo, dizziness EXAMS: CPT CODE: [id number] MRI BRAIN W/O CONT 84114 MRI brain without contrast 12/23/2018 HISTORY: Vertigo, dizziness PROCEDURE: Multiplanar multisequence imaging of the brain is performed without contrast Comparison is made to CT performed on 08/15/2018 FINDINGS: Diffusion-weighted imaging demo nstrates no acute ischemic event. No evidence for acute infarct is presen t. No acute hemorrhage, midline shift, extra-axial fluid collection, hydrocephalus, or mass lesion is present. The expected intracranial flow voids are present. The visualized mastoid air cells are clear. There is moderate left and mild right maxillary mucosal thickening. There is no blooming artifact on the heme sequence to suggest remote hemorrhage. Cran iocervical junction and corpus callosum are within normal limits. Signal nonspecific focus of increased FLAIR signal in the left posterior frontal white matter is noted. IMPRESSION: No acute intracranial abnormality. SL: [id number] Electronic ally Signed by Jae Levine on 12/23/2018 at 1606 Reported and signed by: Jeremias Levine M.D. CC: Rosa Currie MD; Sukhwinder Bianchi MD Technologist: Marin Perrin RT(R)(CT) Trnscrd Date/Time/By: 12/23/2018 (8937) : By: [email or web address] Orig Print D/T: S: 12/23/2018 (7264) PAGE 1 Signed R eport VITAMIN [id number] 14:53:00* Test Item Value Reference Range Comments VITAMIN B12 (test code=VITB12) 345 pg/mL 193-986 [id number] 14:53:00* Test Item Value Reference Range Comments CORTISOL (test code=CORTR) ug/dL CBC W/AUTO [id number] 07:54:00* Test Item Value Reference Range Comments WHITE BLOOD CELL (test code=WBC) 7.47 x10 3/uL 4.5-11.0 RED BLOOD CELL (test code=RBC) 3.93 x10 6/uL 3.54-5.02 HEMOGLOBIN (test code=HGB) 11.9 g/dL 11.0-15.0 HEMATOCRIT (test code=HCT) 38.1 % 33.0-45.0 MEAN CELL VOLUME (test code=MCV) 96.9 fL 81.0-99.0 MEAN CELL HGB (test code=MCH) 30.3 pg 27.0-33.0 MEAN CELL HGB CONCETRATION (test code=MCHC) 31.2 g/dL 33.0-37.0 RED CELL DISTRIBUTION WIDTH CV (test code=RDW) 14.5 % 11.5-14.5 RED CELL DISTRIBUTION WIDTH SD (test code=RDW-SD) 50.9 fL 37.0-54.0 PLATELET COUNT (test code=PLT) 223 x10 3/uL 150-400 MEAN PLATELET VOLUME (test code=MPV) 9.5 fL 7.0-9.0 NEUTROPHIL % (test code=NT%) 55.4 % 56.0-77.0 IMMATURE GRANULOCYTE % (test code=IG%) 1.7 % 0.0-2.0 LYMPHOCYTE % (test code=LY%) 33.6 % 14.0-32.0 MONOCYTE % (test code=MO%) 6.0 % 4.8-9.0 EOSINOPHIL % (test code=EO%) 2.5 % 0.3-3.7 BASOPHIL % (test code=BA%) 0.8 % 0.0-2.0 NUCLEATED RBC % (test code=NRBC%) 0.0 % 0-0 NEUTROPHIL # (test code=NT#) 4.13 x10 3/uL 2.0-7.6 IMMATURE GRANULOCYTE # (test code=IG#) 0.13 x10 3/uL 0.00-0.03 LYMPHOCYTE # (test code=LY#) 2.51 x10 3/uL 1.0-3.8 MONOCYTE # (test code=MO#) 0.45 x10 3/uL 0.1-0.8 EOSINOPHIL # (test code=EO#) 0.19 x10 3/uL 0.0-0.2 BASOPHIL # (test code=BA#) 0.06 x10 3/uL 0.0-0.2 NUCLEATED RBC # (test code=NRBC#) 0.00 x10 3/uL 0.0-0.1 MANUAL DIFF REQUIRED (test code=MDIFF) NO BASIC METABOLIC [id number] 07:51:00* Test Item Value Reference Range Comments SODIUM (test code=NA) 141 mEq/L 134-147 POTASSIUM (test code=K) 3.7 mEq/L 3.4-5.0 CHLORIDE (test code=CL) 112 mEq/L 100-108 CARBON DIOXIDE (test code=CO2) 22 mEq/L 21-33 ANION GAP (test code=GAP) 11 0-20 GLUCOSE (test code=GLU) 90 mg/dL 70-110 BLOOD UREA NITROGEN (test code=BUN) 9 mg/dL 7-18 GLOMERULAR FILTRATION RATE (test code=GFR) 78.7 95-105 Units of measure=ml/min/1.73 m2 CREATININE (test code=CREAT) 0.8 mg/dL 0.6-1.3 CALCIUM (test code=CA) 8.2 mg/dL 8.0-10.5 THYROID STIMULATING [id number] 07:51:00* Test Item Value Reference Range Comments THYROID STIMULATING HORMONE (test code=TSH) 1.77 0.42-5.47 Results in tyler-International Units/mL - CT ANGIO [id number] 13:59:00 Name: SHELLIE OTERO [facility] : 1975 Age/S: 43 / F [address] [place] [address] Unit #: [id number] Loc: [place] [address] Phys: Sukhwinder Bianchi MD Acct: [id number] Dis Date: Status: ADM IN PHONE #: [phone] Exam Date: 12/22/2018 133 FAX #: [phone] Reason: hx of PE, hemoptysis EXAMS: CPT CODE: [id number] CT ANGIO CHEST [address]372 EXAM: CTA CHEST WITH CONTRAST DATE: 12/22/2018 10:06 AM : 1975; Age: 43 years y/o Female INDICATION: Shortness of breath hx of PE, hemoptysis COMPARISON: December 21, 2018 TECHNIQUE: Volumetric CT of the chest is acquired during pulmonary arterial phase following intravenous administration of contrast. Coronal and sagittal reconstructions were created. Three-dimensional or MIP reconstructions of the pulmonary arterial system were created at an independent workstation. IV Contrast: 100 mL Isovue DLP: 519 mGy-cm CT imaging performed at this location utilizes radiation dose optimization techniques which include one or more of the following: -Automated exposure control -Adjustment of the mA and/or kV according to patient size -Use of iterative reconstruction technique FINDINGS: Lower neck: 1.4 cm left thyroid nodule partially seen. Lymph Nodes: There is no mediastinal or hilar lymphadenopathy. No axillary lymphadenopathy. Heart, pericardium and aorta: : The heart is normal in size. No pericardial effusion. Thoracic aorta is normal.. Pulmonary emboli: None. No right heart strain. Lungs: Mild atelectatic changes. No consolidation. No pleural effusions. The central airway is patent. Upper abdomen: Hepatic steatosis partially seen. Soft tissues: Normal. Bones: No acute abnormality. Age-related degenerative findings. IMPRESSION: PAGE 1 Signed Report (CONTINUED) Name: SHELLIE OTERO [facility] : 1975 Age/S: 43 / F [address] [place] [address] Blvd Unit #: [id number] [place]: [place] [address] Phys: Sukhwinder Bianchi MD Acct: [id number] Dis Date: Status: ADM IN PHONE #: [phone] Exam Date: 12/22/2018 133 FAX #: [phone] Reason: hx of PE, hemoptysis EXAMS: CPT CODE: [id number] CT ANGIO CHEST 53357 < Continued> 1. No pulmonary embolism. 2. No Consolidation. 3. Hepatic steatosis. SL: [id number] at 1359 Reported and signed by: Frida Stinson D.O. CC: Rosa Currie MD; Cameron Heller MD; Sukhwinder Bianchi MD Technologist:Alonzo Lozano, RT(R)(CT) CTDI: DLP: Trnscb Date/Time: 12/22/2018 (3225) [email or web address] PAGE 2 Signed Report RESPIRATORY VIRUS PANEL [id number] 12:04:00* Test Item Value Reference Range Comments RSV A PCR (test code=RSV A) Negative Negative RSV B PCR (test code=RSV B) Negative Negative INFLUENZA A (test code=FLUAPCR) Negative Negative INFLUENZA A SUBTYPE H1 (test code=FLUAH1) Negative Negative INFLUENZA A SUBTYPE H3 (test code=FLUAH3) Negative Negative INFLUENZA B (test code=FLUBPCR) Negative Negative PARAINFLUENZA TYPE 1 PCR (test code=PIF1) Negative Negative PARAINFLUENZA TYPE 2 PCR (test code=PIF2) Negative Negative PARAINFLUENZA TYPE 3 PCR (test code=PIF3) Negative Negative PARAINFLUENZA TYPE 4 PCR (test code=PIF4) Negative Negative RHINOVIRUS PCR (test code=RHINO) Negative Negative METAPNEUMOVIRUS PCR (test code=METAPNEU) Negative Negative ADENOVIRUS PCR (test code=ADENOPCR) Negative Negative BORDETELLA PERTUSSIS DNA PCR (test code=BORDPERDNA) Negative Negative B PARAPERTUSSIS BY PCR (test code=BPARAPCR) Negative Negative BORDETELLA HOLMESII (test code=BORDHOLM) Negative Negative Testing was performed using nucleic acid amplificationincluding Bordetella parapertussis/brochiseptica, Bordetella holmesii, and Bordetella pertussis. COMPLEMENT BETA C1 (test code=COMBC1) RVP Comment Comment Testing was performed using nucleic acid amplificationincluding influenza A, influenza A H1, influenza A H3,influenza B, RSV-A, RSV-B, Adenovirus, HumanMetapneumovirus, Parainfluenza 1,2,3 and 4, Rhinovirus, Bordetella parapertussis/brochiseptica, Bordetella holmesii, and Bordetella pertussis. BASIC METABOLIC [id number] 09:44:00* Test Item Value Reference Range Comments SODIUM (test code=NA) 140 mEq/L 134-147 POTASSIUM (test code=K) 3.6 mEq/L 3.4-5.0 CHLORIDE (test code=CL) 111 mEq/L 100-108 CARBON DIOXIDE (test code=CO2) 23 mEq/L 21-33 ANION GAP (test code=GAP) 10 0-20 GLUCOSE (test code=GLU) 106 mg/dL 70-110 BLOOD UREA NITROGEN (test code=BUN) 9 mg/dL 7-18 GLOMERULAR FILTRATION RATE (test code=GFR) 60.8 95-105 Units of measure=ml/min/1.73 m2 CREATININE (test code=CREAT) 1.0 mg/dL 0.6-1.3 CALCIUM (test code=CA) 8.3 mg/dL 8.0-10.5 CBC W/AUTO [id number] 09:20:00* Test Item Value Reference Range Comments WHITE BLOOD CELL (test code=WBC) 9.57 x10 3/uL 4.5-11.0 RED BLOOD CELL (test code=RBC) 4.18 x10 6/uL 3.54-5.02 HEMOGLOBIN (test code=HGB) 12.7 g/dL 11.0-15.0 HEMATOCRIT (test code=HCT) 39.8 % 33.0-45.0 MEAN CELL VOLUME (test code=MCV) 95.2 fL 81.0-99.0 MEAN CELL HGB (test code=MCH) 30.4 pg 27.0-33.0 MEAN CELL HGB CONCETRATION (test code=MCHC) 31.9 g/dL 33.0-37.0 RED CELL DISTRIBUTION WIDTH CV (test code=RDW) 14.1 % 11.5-14.5 RED CELL DISTRIBUTION WIDTH SD (test code=RDW-SD) 49.2 fL 37.0-54.0 PLATELET COUNT (test code=PLT) 242 x10 3/uL 150-400 MEAN PLATELET VOLUME (test code=MPV) 9.1 fL 7.0-9.0 NEUTROPHIL % (test code=NT%) 61.1 % 56.0-77.0 IMMATURE GRANULOCYTE % (test code=IG%) 1.7 % 0.0-2.0 LYMPHOCYTE % (test code=LY%) 29.4 % 14.0-32.0 MONOCYTE % (test code=MO%) 4.9 % 4.8-9.0 EOSINOPHIL % (test code=EO%) 2.1 % 0.3-3.7 BASOPHIL % (test code=BA%) 0.8 % 0.0-2.0 NUCLEATED RBC % (test code=NRBC%) 0.0 % 0-0 NEUTROPHIL # (test code=NT#) 5.85 x10 3/uL 2.0-7.6 IMMATURE GRANULOCYTE # (test code=IG#) 0.16 x10 3/uL 0.00-0.03 LYMPHOCYTE # (test code=LY#) 2.81 x10 3/uL 1.0-3.8 MONOCYTE # (test code=MO#) 0.47 x10 3/uL 0.1-0.8 EOSINOPHIL # (test code=EO#) 0.20 x10 3/uL 0.0-0.2 BASOPHIL # (test code=BA#) 0.08 x10 3/uL 0.0-0.2 NUCLEATED RBC # (test code=NRBC#) 0.00 x10 3/uL 0.0-0.1 MANUAL DIFF REQUIRED (test code=MDIFF) NO [id number] 07:36:00* Test Item Value Reference Range Comments TROPONIN-I (test code=TROPI) < 0.015 ng/mL 0.000-0.045 Negative: <=0.045 Positive: >=0.046 Correlation with serial results, other cardiac markers andclinical findings is necessary to determine the clinicalsignificance of this result. Results using different methodologies should not be comparedto one another as quantitative results may vary by method. COMMENTS: 3 troponins total (including troponin done in ED)[id number] 02:37:00* Test Item Value Reference Range Comments TROPONIN-I (test code=TROPI) < 0.015 ng/mL 0.000-0.045 Negative: <=0.045 Positive: >=0.046 Correlation with serial results, other cardiac markers andclinical findings is necessary to determine the clinicalsignificance of this result. Results using different methodologies should not be comparedto one another as quantitative results may vary by method. COMMENTS: 3 troponins total (including troponin done in ED)- CT CHEST W/CONTRAST 2018-12-21 21:28:00 Name: SHELLIE OTERO [facility] [place] : 1975 Age/S: 43 / F [address] [place] [address] Unit #: [id number] Loc: [place] [address] Phys: Jon Pulido DO Acct: [id number] Dis Date: Status: REG ER PHONE #: [phone] Exam Date: 12/21/20182100 FAX #: [phone] Reason: sob EXAMS: CPT CODE: [id number] CT CHEST W/CONTRAST 65188 Clinical Indication: sob Comparison: CT chest August 03, 2018 TECHNIQUE: Helical imaging was performed without injection of IV contrast, from the chest through the symphysis with multiplanar reformations obtained. IV CONTRAST: No IV contrast was administered. GI CONTRAST: No oral contrast was administered. DLP: 610 mGy-cm FINDINGS: Evaluations of the internal organs are limited due to the lack of IV contrast. CT CHEST WITHOUT CONTRAST: THYROID: A 1.4 cm hypodense nodule is seen in the left thyroid lobe. LUNG PARENCHYMA AND PLEURA: There are no lung nodules. There is no significant interstitial lung disease. There are no pleural effusions. There is no pneumothorax. AIRWAY: The central airway is normal.. LYMPH NODES: No axillary, hilar or mediastinal lymphadenopathy is seen. HEART: The heart is normal in size. . Mild coronary calcification is present. There is no pericardial effusion. VASCULAR STRUCTURES: The pulmonary arteries and great vessels are unremarkable. The thoracic aorta is within normal limits.. The superior vena cava is unremarkable. ESOPHAGUS: No gross abnormalities. OSSEOUS STRUCTURES: There are no significant osseous abnormalities seen. UPPER ABDOMEN: Diffuse hepatic steatosis and cholecystectomy are present. A 1.6 cm hypervascular lesion is seen in segment 6. The left kidney contains a 1.0 cm cyst. PAGE 1 Signed Report (CONTINUED) Name: SHELLIE OTERO [facility] [place] : 1975 Age/S: 43 / F [address] [place] [address] Unit #: [id number] Loc: [place] [address] Phys: Jon Pulido Acct: [id number] Dis Date: Status: REG ER PHONE #: [phone] Exam Date: 12/21/20182100 FAX #: [phone] Reason: sob EXAMS: CPT CODE: [id number] CT CHEST W/CONTRAST 63507 <Continued> IMPRESSION: No evidence of pneumonia or acute findings in the chest. A 1.4 cm left thyroid nodule. Recommend a nonemergent ultrasound for further evaluation. Diffuse hepatic steatosis. A 1.6 cm hypervascular lesion in segment 6, nonspecific. Recommend a nonemergent MRI for further evaluation. Left renal cyst. SL: [id number] at 2127 Reported and signed by: Kun Mar M.D. CC: Rosa Currie MD; Jon Pulido DO Technologist:Minerva Sahu, RT(R) CTDI: DLP: Trnscb Date/Time: 12/21/2018 (2127) [email or web address] Orig Print D/T: S: 12/21/2018 (2130) CTDI: DLP: PAGE 2 Signed Report BASIC METABOLIC [id number] 19:43:00* Test Item Value Reference Range Comments SODIUM (test code=NA) 141 mEq/L 134-147 POTASSIUM (test code=K) 3.6 mEq/L 3.4-5.0 CHLORIDE (test code=CL) 109 mEq/L 100-108 CARBON DIOXIDE (test code=CO2) 27 mEq/L 21-33 ANION GAP (test code=GAP) 9 0-20 GLUCOSE (test code=GLU) 83 mg/dL 70-110 BLOOD UREA NITROGEN (test code=BUN) 8 mg/dL 7-18 GLOMERULAR FILTRATION RATE (test code=GFR) 78.7 95-105 Units of measure=ml/min/1.73 m2 CREATININE (test code=CREAT) 0.8 mg/dL 0.6-1.3 CALCIUM (test code=CA) 9.1 mg/dL 8.0-10.5 HCG SERUM [id number] 19:43:00* Test Item Value Reference Range Comments HCG SERUM QUAL (test code=HCGQL) SERUM NEGATIVE NEGATIVE [id number] 19:43:00* Test Item Value Reference Range Comments TROPONIN-I (test code=TROPI) < 0.015 ng/mL 0.000-0.045 Negative: <=0.045 Positive: >=0.046 Correlation with serial results, other cardiac markers andclinical findings is necessary to determine the clinicalsignificance of this result. Results using different methodologies should not be comparedto one another as quantitative results may vary by method. BASIC METABOLIC [id number] 19:35:00* Test Item Value Reference Range Comments SODIUM (test code=NA) mEq/L 134-147 POTASSIUM (test code=K) mEq/L 3.4-5.0 CHLORIDE (test code=CL) mEq/L 100-108 CARBON DIOXIDE (test code=CO2) mEq/L 21-33 ANION GAP (test code=GAP) 0-20 GLUCOSE (test code=GLU) mg/dL 70-110 BLOOD UREA NITROGEN (test code=BUN) mg/dL 7-18 GLOMERULAR FILTRATION RATE (test code=GFR) 95-105 CREATININE (test code=CREAT) mg/dL 0.6-1.3 CALCIUM (test code=CA) mg/dL 8.0-10.5 HCG SERUM [id number] 19:35:00* Test Item Value Reference Range Comments HCG SERUM QUAL (test code=HCGQL) SERUM NEGATIVE NEGATIVE [id number] 19:35:00* Test Item Value Reference Range Comments TROPONIN-I (test code=TROPI) ng/mL 0.000-0.045 CBC W/O [id number] 19:27:00* Test Item Value Reference Range Comments WHITE BLOOD CELL (test code=WBC) 13.71 x10 3/uL 4.5-11.0 RED BLOOD CELL (test code=RBC) 4.55 x10 6/uL 3.54-5.02 HEMOGLOBIN (test code=HGB) 13.5 g/dL 11.0-15.0 HEMATOCRIT (test code=HCT) 42.6 % 33.0-45.0 MEAN CELL VOLUME (test code=MCV) 93.6 fL 81.0-99.0 MEAN CELL HGB (test code=MCH) 29.7 pg 27.0-33.0 MEAN CELL HGB CONCETRATION (test code=MCHC) 31.7 g/dL 33.0-37.0 RED CELL DISTRIBUTION WIDTH CV (test code=RDW) 13.8 % 11.5-14.5 RED CELL DISTRIBUTION WIDTH SD (test code=RDW-SD) 47.3 fL 37.0-54.0 PLATELET COUNT (test code=PLT) 285 x10 3/uL 150-400 MEAN PLATELET VOLUME (test code=MPV) 9.4 fL 7.0-9.0 - XR CHEST 2 [id number] 17:52:00 FAX: Jon Lopez DO [phone] [place]: St: REG Name: Sharon ANGELESSHELLIE SHEILA [facility] : [birth year] Age/S: 43/F [address] [place] [address] Unit #: [id number] Loc: [place] [address] Phys: Jon Pulido DO Acct: [id number] Dis Date: Status: REG ER PHONE #: [phone] Exam Date: 12/21/2018 1740 FAX #: [phone] Reason: cough EXAMS: CPT CODE: [id number] XR CHEST 2 V 26165 Patient: SHELLIE OTERO. : 1975; Age: 43 years; Gender: Female. MR: [id number]. Ordering physician: Jon Pulido DO. CHEST 2 VIEWS: HISTORY: Cough and pneumonia. COMPARISON: Chest x-ray 1 . FINDINGS: Frontal and lateral views of the chest were obtained. The lungs are clear bilaterally. The cardiomediastinal silhouet te and pulmonary vasculature are unremarkable. The partially visualized up per abdomen is unremarkable. IMPRESSION: No acute disease in the chest. SL: [id number] Electron icapaul Signed by Jae Irizarry on 12/21/2018 at 1752 Repor deo and signed by: Anurag Irizarry M.D. CC: Jon Pulido DO Technologist: Jena Guzmán, RT (R); Yelitza Newton, RT(R) Trnscrd Date/Time/By: 12/21/2018 (662) : By: [email or web address] Orig Print D/T: S: 12/21/2018 (0113) PAGE 1 Signed Report BLOOD CULTURE 2017-09-18 10:00:00* Test Item Value Reference Range Comments CULTURE (BEAKER) (test nbex=5512) No growth in 5 days BASIC METABOLIC [id number] 05:11:00* Test Item Value Reference Range Comments SODIUM (BEAKER) (test qobq=135) 140 meq/L 135-148 POTASSIUM (BEAKER) (test zran=716) 3.6 meq/L 3.6-5.5 CHLORIDE (BEAKER) (test qbfh=464) 109 meq/L 98-106 CO2 (BEAKER) (test uwji=902) 22 meq/L 20-29 BLOOD UREA NITROGEN (BEAKER) (test snjv=305) 7 mg/dL 10-26 CREATININE (BEAKER) (test wyrd=794) 0.65 mg/dL 0.50-1.20 GLUCOSE RANDOM (BEAKER) (test vbpl=174) 99 mg/dL 70-110 CALCIUM (BEAKER) (test kahg=215) 7.9 mg/dL 8.5-10.5 EGFR (BEAKER) (test lmkn=4416) 100 mL/min/1.73 sq m ESTIMATED GFR IS NOT ACCURATE CREATININE CLEARANCE IN PREDICTING GLOMERULAR FILTRATION RATE. ESTIMATED GFR IS NOT APPLICABLE FOR DIALYSIS PATIENTS. CBC W/PLT COUNT & AUTO [id number] 05:00:00* Test Item Value Reference Range Comments WHITE BLOOD CELL COUNT (BEAKER) (test nhfd=163) 12.9 K/ L 4.0-10.0 RED BLOOD CELL COUNT (BEAKER) (test jpfr=529) 4.09 M/ L 4.00-5.00 HEMOGLOBIN (BEAKER) (test ehfn=005) 12.7 GM/DL 12.0-15.0 HEMATOCRIT (BEAKER) (test yejh=980) 37.5 % 36.0-45.0 MEAN CORPUSCULAR VOLUME (BEAKER) (test pqti=491) 91.7 fL 82.0-99.0 MEAN CORPUSCULAR HEMOGLOBIN (BEAKER) (test detg=293) 31.1 pg 27.0-33.0 MEAN CORPUSCULAR HEMOGLOBIN CONC (BEAKER) (test ycmz=935) 33.9 GM/DL 32.0-36.0 RED CELL DISTRIBUTION WIDTH (BEAKER) (test eoxg=710) 16.4 % 10.3-14.2 PLATELET COUNT (BEAKER) (test hmii=955) 235 K/CU MM 150-430 MEAN PLATELET VOLUME (BEAKER) (test qvwb=861) 8.9 fL 6.5-10.5 NUCLEATED RED BLOOD CELLS (BEAKER) (test qhqe=009) 0 /100 WBC 0-0 NEUTROPHILS RELATIVE PERCENT (BEAKER) (test innf=420) 61 % LYMPHOCYTES RELATIVE PERCENT (BEAKER) (test ktjg=946) 32 % MONOCYTES RELATIVE PERCENT (BEAKER) (test ywfx=909) 5 % EOSINOPHILS RELATIVE PERCENT (BEAKER) (test tllk=757) 2 % BASOPHILS RELATIVE PERCENT (BEAKER) (test vcxz=692) 1 % NEUTROPHILS ABSOLUTE COUNT (BEAKER) (test beeo=571) 7.85 K/ L 1.80-8.00 LYMPHOCYTES ABSOLUTE COUNT (BEAKER) (test vdmj=868) 4.08 K/ L 1.48-4.50 MONOCYTES ABSOLUTE COUNT (BEAKER) (test edcc=888) 0.66 K/ L 0.00-1.30 EOSINOPHILS ABSOLUTE COUNT (BEAKER) (test vgwd=864) 0.26 K/ L 0.00-0.50 BASOPHILS ABSOLUTE COUNT (BEAKER) (test axhq=826) 0.07 K/ L 0.00-0.20 [facility] IMAGING, MULTI, PHARM, [id number] 19:36:00FINAL REPORT PROCEDURE: Myocardial Perfusion Imaging with Pharmacologic Stress PHARMACOLOGIC INDICATION: Reason for pharmacologic stress is back and abdominal pain, degenerative disk disease, and uterus/bladder fistula. PROTOCOL:This was a one day study and the imaging sequence was rest/stress. Tomographic (SPECT) myocardial perfusion imaging was performed at rest 120 minutes after the intravenous injection of 11 mCi Tc-99m sestamibi. During Lexiscan (regadenoson) stress, the patient was injected with 32 mCi Tc-99m sestamibi intravenously. Gated post-stress imaging was performed 110 minutes after stress. Pharmacologic stress testing was performed with the intravenous injection of 0.4 mg Lexiscan within 30 seconds. The patient's heart rate went from 65 beats/minute at rest to 114 beats/minute during stress. The blood pressure went from 131/68 mm Hg at rest to 128/64 mm Hg during stress, which is a normal response to pharmacologic stress. The patient did not complain of chest pain at rest. The patient did complain of atypical chest pain during stress which resolved in recovery without intervention. The resting electrocardiogram (ECG) showed sinus rhythm and did not demonstrate any ST-segment changes during stress. FINDINGS:The overall quality of the study is good. Perfusion SPECT images at rest and stress show normal tracer distribution in the left ventricular myocardium.Breast attenuation artifact anterior wall mild fixed defects with normal wall motion. The left ventricular (LV) cavity appears normal. The right ventricular (RV) cavity appears normal. The left ventricular ejection fraction (EF) is normal at 62%. Gated SPECT images show normal LV wall motion and thickening. IMPRESSIO N:Normal myocardial perfusion stress test. Overall left ventricular function i s normal without regional wall motion abnormalities. Signed: Bryson Haskins MDReport Verified Date/Time: 09/14/2017 19:36:07 Reading Location: [facility] Dictation Room , PELVIS, WO [id number] 13:07:00Please perform CT cystogram - please discuss with radiologist prior to performing this procedure so tech understands how to perform correctlyFINAL REPORT CT PELVIS WITHOUT IV CONTRAST (CT CYSTOGRAM) History provided: Patient with Mello catheter in place and history of previous bladder injury. TECHNIQUE: Initial noncontrast imaging was performed through the pelvis. Following this, 200 cc dilute contrast was administered via the Emllo catheter. The patient could not tolerate any further bladder distention. CT imaging was performed. Post drainage images were then obtained. FINDINGS: There is no contrast extravasation present. The bladder emptied completely on the drainage images. On sagittal reformations, there is a small diverticulum originating from the anterior superior aspect of the urinary bladder just to the left of midline. No filling defects are seen within the urinary bladder. Presumed right ovarian cyst measuring 3.1 cm diameter. Examination of the true pelvis otherwise unrema rkable. No free fluid or inflammation seen. There is a small amount of air withi n the fat of the anterior abdominal wall at the level of the pelvis to the right of midline which may be due to injection site. IMPRESSION: No contrast extravas ation from the urinary bladder to suggest tear. Small diverticulum originating f rom the anterior superior aspect of the bladder to the left of midline. COMMENT: This exam was performed according to our departmental dose-optimization program, which includes automated exposure control, adjustment of the mA and/or kV acco rding to patient size and/or use of iterative reconstruction technique. Signed: Melida Chanel MDReport Verified Date/Time: 09/14/2017 13:07:48 Reading Location: [facility] Diagnostic Imaging Reading Room - [facility] [phone] Electronically s igned by: MELIDA CHANEL on 09/14/2017 01:07 PM BASIC METABOLIC [id number] 04:57:00* Test Item Value Reference Range Comments SODIUM (BEAKER) (test jjlm=075) 138 meq/L 135-148 POTASSIUM (BEAKER) (test cnbk=008) 4.1 meq/L 3.6-5.5 CHLORIDE (BEAKER) (test kfjr=921) 108 meq/L 98-106 CO2 (BEAKER) (test eaol=632) 22 meq/L 20-29 BLOOD UREA NITROGEN (BEAKER) (test ewcm=588) 6 mg/dL 10-26 CREATININE (BEAKER) (test dbpw=388) 0.63 mg/dL 0.50-1.20 GLUCOSE RANDOM (BEAKER) (test aofd=864) 150 mg/dL 70-110 CALCIUM (BEAKER) (test nblj=076) 8.2 mg/dL 8.5-10.5 EGFR (BEAKER) (test olpl=6253) 104 mL/min/1.73 sq m ESTIMATED GFR IS NOT ACCURATE CREATININE CLEARANCE IN PREDICTING GLOMERULAR FILTRATION RATE. ESTIMATED GFR IS NOT APPLICABLE FOR DIALYSIS PATIENTS. CBC W/PLT COUNT & AUTO [id number] 04:33:00* Test Item Value Reference Range Comments WHITE BLOOD CELL COUNT (BEAKER) (test dhxd=959) 14.0 K/ L 4.0-10.0 RED BLOOD CELL COUNT (BEAKER) (test jfpb=735) 4.20 M/ L 4.00-5.00 HEMOGLOBIN (BEAKER) (test tgst=422) 13.1 GM/DL 12.0-15.0 HEMATOCRIT (BEAKER) (test prku=413) 38.2 % 36.0-45.0 MEAN CORPUSCULAR VOLUME (BEAKER) (test jqnt=508) 91.0 fL 82.0-99.0 MEAN CORPUSCULAR HEMOGLOBIN (BEAKER) (test cxpf=450) 31.2 pg 27.0-33.0 MEAN CORPUSCULAR HEMOGLOBIN CONC (BEAKER) (test qppg=584) 34.3 GM/DL 32.0-36.0 RED CELL DISTRIBUTION WIDTH (BEAKER) (test rakh=910) 16.0 % 10.3-14.2 PLATELET COUNT (BEAKER) (test gjfr=645) 260 K/CU MM 150-430 MEAN PLATELET VOLUME (BEAKER) (test ohax=732) 8.8 fL 6.5-10.5 NUCLEATED RED BLOOD CELLS (BEAKER) (test ibje=252) 0 /100 WBC 0-0 NEUTROPHILS RELATIVE PERCENT (BEAKER) (test quxx=011) 84 % LYMPHOCYTES RELATIVE PERCENT (BEAKER) (test btuq=424) 11 % MONOCYTES RELATIVE PERCENT (BEAKER) (test mars=796) 4 % EOSINOPHILS RELATIVE PERCENT (BEAKER) (test qgic=790) 0 % BASOPHILS RELATIVE PERCENT (BEAKER) (test efeh=239) 0 % NEUTROPHILS ABSOLUTE COUNT (BEAKER) (test ukkr=812) 11.80 K/ L 1.80-8.00 LYMPHOCYTES ABSOLUTE COUNT (BEAKER) (test akqh=256) 1.58 K/ L 1.48-4.50 MONOCYTES ABSOLUTE COUNT (BEAKER) (test cxva=024) 0.59 K/ L 0.00-1.30 EOSINOPHILS ABSOLUTE COUNT (BEAKER) (test zali=604) 0.01 K/ L 0.00-0.50 BASOPHILS ABSOLUTE COUNT (BEAKER) (test okei=130) 0.03 K/ L 0.00-0.20 TROPONIN [id number] 15:21:00* Test Item Value Reference Range Comments TROPONIN I (BEAKER) (test bsxi=783) < ng/mL 0.00-0.15 Troponin I (TnI) levels must be interpreted in the context of the presenting sym ptoms and the clinical findings. Elevated TnI levels indicate myocardial damage, but are not specific for ischemic heart disease. Elevated TnI levels are seen in patients with other cardiac conditions (including myocarditis and congestive h eart failure), and slight TnI elevations occur in patients with other conditions , including sepsis, renal failure, acidosis, acute neurological disease, and per sistent tachyarrhythmia.BASIC METABOLIC [id number] 05:49:00* Test Item Value Reference Range Comments SODIUM (BEAKER) (test uydl=830) 139 meq/L 135-148 POTASSIUM (BEAKER) (test qvfa=688) 4.0 meq/L 3.6-5.5 CHLORIDE (BEAKER) (test ttqw=386) 107 meq/L 98-106 CO2 (BEAKER) (test hpso=431) 22 meq/L 20-29 BLOOD UREA NITROGEN (BEAKER) (test hfdg=513) 7 mg/dL 10-26 CREATININE (BEAKER) (test xyjp=245) 0.66 mg/dL 0.50-1.20 GLUCOSE RANDOM (BEAKER) (test vyrb=671) 94 mg/dL 70-110 CALCIUM (BEAKER) (test zleo=627) 8.5 mg/dL 8.5-10.5 EGFR (BEAKER) (test pyzr=0924) 99 mL/min/1.73 sq m ESTIMATED GFR IS NOT ACCURATE CREATININE CLEARANCE IN PREDICTING GLOMERULAR FILTRATION RATE. ESTIMATED GFR IS NOT APPLICABLE FOR DIALYSIS PATIENTS. CBC W/PLT COUNT & AUTO [id number] 05:38:00* Test Item Value Reference Range Comments WHITE BLOOD CELL COUNT (BEAKER) (test mpfe=742) 13.2 K/ L 4.0-10.0 RED BLOOD CELL COUNT (BEAKER) (test nfkk=023) 4.36 M/ L 4.00-5.00 HEMOGLOBIN (BEAKER) (test foag=437) 13.4 GM/DL 12.0-15.0 HEMATOCRIT (BEAKER) (test fonu=515) 39.7 % 36.0-45.0 MEAN CORPUSCULAR VOLUME (BEAKER) (test yrhg=098) 91.1 fL 82.0-99.0 MEAN CORPUSCULAR HEMOGLOBIN (BEAKER) (test eszo=017) 30.7 pg 27.0-33.0 MEAN CORPUSCULAR HEMOGLOBIN CONC (BEAKER) (test wytq=726) 33.8 GM/DL 32.0-36.0 RED CELL DISTRIBUTION WIDTH (BEAKER) (test ypju=102) 16.1 % 10.3-14.2 PLATELET COUNT (BEAKER) (test jxgo=349) 245 K/CU MM 150-430 MEAN PLATELET VOLUME (BEAKER) (test lcpo=301) 9.2 fL 6.5-10.5 NUCLEATED RED BLOOD CELLS (BEAKER) (test umgq=614) 0 /100 WBC 0-0 NEUTROPHILS RELATIVE PERCENT (BEAKER) (test twua=999) 65 % LYMPHOCYTES RELATIVE PERCENT (BEAKER) (test ujpd=830) 27 % MONOCYTES RELATIVE PERCENT (BEAKER) (test nqap=654) 5 % EOSINOPHILS RELATIVE PERCENT (BEAKER) (test jhyw=961) 3 % BASOPHILS RELATIVE PERCENT (BEAKER) (test hvwu=822) 1 % NEUTROPHILS ABSOLUTE COUNT (BEAKER) (test tnuf=608) 8.58 K/ L 1.80-8.00 LYMPHOCYTES ABSOLUTE COUNT (BEAKER) (test adjc=515) 3.52 K/ L 1.48-4.50 MONOCYTES ABSOLUTE COUNT (BEAKER) (test enob=114) 0.60 K/ L 0.00-1.30 EOSINOPHILS ABSOLUTE COUNT (BEAKER) (test qakb=832) 0.39 K/ L 0.00-0.50 BASOPHILS ABSOLUTE COUNT (BEAKER) (test xnyv=419) 0.08 K/ L 0.00-0.20 CT, [id number] 23:56:00Reason for exam:->painIs the patient ?-> UnknownWhat is the patient's sedation requirement?->No SedationFINAL REPORT CLINICAL HISTORY: Chest pain and acute abdominal pain FINDINGS: Multiple axial images of the chest, abdomen and pelvis were performed after the uncomplicated administration of IV contrast, utilizing a pulmonary embolism protocol for the chest portion. Post-processing coronal reformats of the chest were created and interpreted. Oral contrast was not given. This exam was performed according to our departmental dose-optimization program, which includes automated exposure control, adjustment of the mA and/or kV according to patient size and/or use of the iterative reconstruction technique. Comparison: None. Chest: Pulmonary arteries: No pulmonary embolism. Lung parenchyma: No s ignificant findings. Pleural effusion: None. Pneumothorax: None. Tracheobronchia l tree: No significant findings. Pulmonary vasculature: No significant findings. Cardiac contours and great vessels: No significant findings. Mediastinum: 1.2 cm hypodense nodule in the posterior left thyroid gland. Lymph Nodes: No adenopathy in the mediastinum or grace. Skeleton: No acute abnormality. Abdomen and pelvis: Liver: Diffuse low-density of the liver parenchyma, consistent with steatosis. Peripheral hypervascular focus in the right hepatic lobe measuring 2.2 x 1.0 cm. Gallbladder and biliary tree: Previous cholecystectomy Spleen: No significant findings. Adrenal Glands: No significant findings. Kidneys and ureters: No sig nificant findings. Stomach and Duodenum: No significant findings. Pancreas: No s ignificant findings. Bowel: No significant findings. Appendix: Normal. Bladd er: Decompressed with a Mello catheter Major vascular structures: No significant findings. Reproductive organs: No significant findings. Other: No free air, fluid or adenopathy Skeleton: No acute bony abnormality. IMPRESSION: No pulmona ry embolism or acute cardiopulmonary abnormality. No acute abnormality in the ab domen or pelvis to explain the patient's pain. Hepatic steatosis. 2.2 x 1 point centimeter enhancing focus in the peripheral right liver, nonspecific. Definitiv e characterization with nonemergent liver protocol MRI can be performed. Previou s cholecystectomy. 1.2 cm left thyroid nodule. Please see below for published re commendations for the follow-up of incidentally detected thyroid nodules. Recom mendations for f/u of Incidental Thyroid Nodules (ITN) found on CT, MRI, NM and Extrathyroidal US based on the ACR white paper and Coleman 3-tiered system for carlos ging ITNs: 1. Further evaluation by thyroid US recommended for: o Solitary ITN with high risk imaging features (locally invasive nodu le or suspicious lymph nodes) o Solitary ITN of any size in p ediatric patients <=18 years of age o Solitary ITN >=1 cm in axial plane in patients > 18 and < 35 years of age o Solitary ITN >=1.5 cm in axial plane in patients >=35 years of age o Heterogeneous enlarged thyroid gland o ITN avid on FDG-PET or other nuclear medicine (MIBI and octreotide) scans. FNA biopsy is also recommended for PET avid nodules. 2. For multiple thyroid nodules, the above recommendations for solitary ITN are to be applied to the largest nodule. 3. No US or f/u recommended for ITNs without high risk features in patients with limited life expectancy or significant co-morbidities, unless clinically warranted. 4. These recommendations do not apply to patients with increased risk for thyroid cancer or to patients with symptomatic thyroid disease. Signed: Linus Kramer MDReport Verified Date/Time: 09/12/2017 23:56:48 Reading Location: [address] Reading Room , CHEST WITH IV CONTRAST- PE TEST [id number] 23:56:00Reason for exam:->cpIs the patient ?->UnknownWhat is the patient's sedation requirement?->No SedationFINAL REPORT CLINICAL HISTORY: Chest pain and acute abdominal pain FINDINGS: Multiple axial images of the chest, abdomen and pelvis were performed after the uncomplicated administration of IV contrast, utilizing a pu lmonary embolism protocol for the chest portion. Post-processing coronal reforma ts of the chest were created and interpreted. Oral contrast was not given. This exam was performed according to our departmental dose-optimization program, [facility] ch includes automated exposure control, adjustment of the mA and/or kV according to patient size and/or use of the iterative reconstruction technique. Compariso n: None. Chest: Pulmonary arteries: No pulmonary embolism. Lung parenchyma: No s ignificant findings. Pleural effusion: None. Pneumothorax: None. Tracheobronchia l tree: No significant findings. Pulmonary vasculature: No significant findings. Cardiac contours and great vessels: No significant findings. Mediastinum: 1.2 cm hypodense nodule in the posterior left thyroid gland. Lymph Nodes: No adenopathy in the mediastinum or grace. Skeleton: No acute abnormality. Abdomen and pelvis: Liver: Diffuse low-density of the liver parenchyma, consistent with steatosis. Peripheral hypervascular focus in the right hepatic lobe measuring 2.2 x 1.0 cm. Gallbladder and biliary tree: Previous cholecystectomy Spleen: No significant findings. Adrenal Glands: No significant findings. Kidneys and ureters: No sig nificant findings. Stomach and Duodenum: No significant findings. Pancreas: No s ignificant findings. Bowel: No significant findings. Appendix: Normal. Bladd er: Decompressed with a Mello catheter Major vascular structures: No significant findings. Reproductive organs: No significant findings. Other: No free air, fluid or adenopathy Skeleton: No acute bony abnormality. IMPRESSION: No pulmona ry embolism or acute cardiopulmonary abnormality. No acute abnormality in the ab domen or pelvis to explain the patient's pain. Hepatic steatosis. 2.2 x 1 point centimeter enhancing focus in the peripheral right liver, nonspecific. Definitiv e characterization with nonemergent liver protocol MRI can be performed. Previou s cholecystectomy. 1.2 cm left thyroid nodule. Please see below for published re commendations for the follow-up of incidentally detected thyroid nodules. Recom mendations for f/u of Incidental Thyroid Nodules (ITN) found on CT, MRI, NM and Extrathyroidal US based on the ACR white paper and Coleman 3-tiered system for carlos ging ITNs: 1. Further evaluation by thyroid US recommended for: o Solitary ITN with high risk imaging features (locally invasive nodu le or suspicious lymph nodes) o Solitary ITN of any size in p ediatric patients <=18 years of age o Solitary ITN >=1 cm in axial plane in patients > 18 and < 35 years of age o Solitary ITN >=1.5 cm in axial plane in patients >=35 years of age o Heterogeneous enlarged thyroid gland o ITN avid on FDG-PET or other nuclear medicine (MIBI and octreotide) scans. FNA biopsy is also recommended for PET avid nodules. 2. For multiple thyroid nodules, the above recommendations for solitary ITN are to be applied to the largest nodule. 3. No US or f/u recommended for ITNs without high risk features in patients with limited life expectancy or significant co-morbidities, unless clinically warranted. 4. These recommendations do not apply to patients with increased risk for thyroid cancer or to patients with symptomatic thyroid disease. Signed: Linus Kramer Verified Date/Time: 09/12/2017 23:56:48 Reading Location: [address] Reading Room , BRAIN, WITHOUT [id number] 23:51:00Reason for exam:->HAIs the patient ?-> UnknownWhat is the patient's sedation requirement?->No SedationFINAL REPORT CLINICAL HISTORY: Headache. COMPARISON: None Multiple axial images of the brain were performed without IV contrast. This exam was performed according to our departmental dose-optimization program, which includes automated exposure control, adjustment of the mA and/or kV according to patient size and/or use of the iterative reconstruction technique. Intracra nial hemorrhage: None. Brain parenchyma: No CT evidence of acute ischemia. Ventricles, sulci and basal cisterns: Normal for age. Extra-axial spaces: Norm al. Midline shift: None. Visualized vasculature: Normal. Cranium: No signific ant findings. Skullbase: No significant findings. Paranasal sinuses: No signific ant findings. IMPRESSION: No definite acute intracranial abnormality. There is no mass lesion, intracranial hemorrhage or CT evidence of acute stroke. Please n ote that CT is insensitive in the detection of acute ischemia. Signed: Linus Kramer MDReport Verified Date/Time: 09/12/2017 23:51:41 Reading Location: [address] Reading Room B-TYPE NATRIURETIC FACTOR (BNP)2017-09-12 22:21:00* Test Item Value Reference Range Comments B-TYPE NATRIURETIC PEPTIDE (BEAKER) (test tgvq=759) 6 pg/mL 0-100 CREATINE KINASE (CK), TOTAL AND [id number] 22:17:00* Test Item Value Reference Range Comments CREATINE KINASE TOTAL (BEAKER) (test zutb=376) 41 U/L 25-235 CREATINE KINASE-MB (BEAKER) (test xbrs=373) 0.6 ng/mL 0.0-4.9 CREATINE KINASE-MB INDEX (BEAKER) (test fzva=986) 1.5 % CK-MB Reference Range:<5 Normal5-10 Borderline>10 AbnormalTROPONIN I 2017-09-12 22:17:00* Test Item Value Reference Range Comments TROPONIN I (BEAKER) (test tznc=399) < ng/mL 0.00-0.15 Troponin I (TnI) levels must be interpreted in the context of the presenting sym ptoms and the clinical findings. Elevated TnI levels indicate myocardial damage, but are not specific for ischemic heart disease. Elevated TnI levels are seen in patients with other cardiac conditions (including myocarditis and congestive h eart failure), and slight TnI elevations occur in patients with other conditions , including sepsis, renal failure, acidosis, acute neurological disease, and per sistent tachyarrhythmia.COMPREHENSIVE METABOLIC [id number] 22:11:00* Test Item Value Reference Range Comments TOTAL PROTEIN (BEAKER) (test bggo=344) 7.1 gm/dL 6.0-8.5 ALBUMIN (BEAKER) (test zojh=7858) 4.0 g/dL 3.5-5.0 ALKALINE PHOSPHATASE (BEAKER) (test bzey=803) 87 U/L 30-115 BILIRUBIN TOTAL (BEAKER) (test rmrb=926) < mg/dL 0.1-1.2 SODIUM (BEAKER) (test usrl=187) 139 meq/L 135-148 POTASSIUM (BEAKER) (test xgud=854) 3.5 meq/L 3.6-5.5 CHLORIDE (BEAKER) (test tgvl=801) 104 meq/L 98-106 CO2 (BEAKER) (test vkdf=667) 24 meq/L 20-29 BLOOD UREA NITROGEN (BEAKER) (test ayfa=154) 7 mg/dL 10-26 CREATININE (BEAKER) (test fmch=962) 0.68 mg/dL 0.50-1.20 GLUCOSE RANDOM (BEAKER) (test iijl=023) 95 mg/dL 70-110 CALCIUM (BEAKER) (test dnkt=071) 8.8 mg/dL 8.5-10.5 AST (SGOT) (BEAKER) (test dcuw=816) 21 U/L 5-40 ALT (SGPT) (BEAKER) (test sgmh=579) 25 U/L 5-50 EGFR (BEAKER) (test ideg=8878) 95 mL/min/1.73 sq m ESTIMATED GFR IS NOT ACCURATE CREATININE CLEARANCE IN PREDICTING GLOMERULAR FILTRATION RATE. ESTIMATED GFR IS NOT APPLICABLE FOR DIALYSIS PATIENTS. [id number] 22:11:00* Test Item Value Reference Range Comments LIPASE (BEAKER) (test hhsz=217) 90 U/L 6-51 [id number] 22:11:00* Test Item Value Reference Range Comments D-DIMER QUANTITATIVE (BEAKER) (test knrq=959) 0.19 MG/L FEU <0.50 REGARDING D-DIMER RESULTS: The 98% NPV (Negative Predictive Value) for DVT/PE ex clusion is 0.50 mg/L FEU as suggested by the freezer worker and as approved by the FDA.PT/[id number] 22:11:00* Test Item Value Reference Range Comments PROTIME (BEAKER) (test xhcm=351) 9.5 seconds 9.8-12.0 INR (BEAKER) (test kksx=411) 0.9 <=5.9 PARTIAL THROMBOPLASTIN TIME (BEAKER) (test iymq=325) 26.8 seconds 25.8-34.5 RECOMMENDED COUMADIN/WARFARIN INR THERAPY RANGESSTANDARD DOSE: 2.0 - 3.0 Inclu kimberly: PROPHYLAXIS for venous thrombosis, systemic embolization; TREATMENT for mirtha ous thrombosis and/or pulmonary embolus.HIGH RISK: Target INR is 2.5-3.5 for pat ients with mechanical heart valves.PROTHROMBIN [id number] 22:11:00* Test Item Value Reference Range Comments PROTIME (BEAKER) (test sphm=903) 9.5 seconds 9.8-12.0 INR (BEAKER) (test wzcv=635) 0.9 <=5.9 RECOMMENDED COUMADIN/WARFARIN INR THERAPY RANGESSTANDARD DOSE: 2.0 - 3.0 Inclu kimberly: PROPHYLAXIS for venous thrombosis, systemic embolization; TREATMENT for mirtha ous thrombosis and/or pulmonary embolus.HIGH RISK: Target INR is 2.5-3.5 for pat ients with mechanical heart valves.[id number] 22:10:00* Test Item Value Reference Range Comments MAGNESIUM (BEAKER) (test tqnl=338) 2.1 mg/dL 1.5-3.0 LACTIC ACID, VENOUS, WHOLE [id number] 22:04:00* Test Item Value Reference Range Comments LACTATE BLOOD VENOUS (2) (BEAKER) (test aeya=2881) 2.7 mmol/L 0.5-2.2 Effective 02/20/2016: Units/Reference Range ChangeNew: 0.5-2.2 mmol/L Previous: 5 -18 mg/dLURINALYSIS WITH MICROSCOPIC IF [id number] 22:01:00* Test Item Value Reference Range Comments COLOR (BEAKER) (test wobv=326) Yellow CLARITY (BEAKER) (test kaur=580) Clear SPECIFIC GRAVITY UA (BEAKER) (test boiq=441) 1.020 1.001-1.035 PH UA (BEAKER) (test xeun=561) 6.0 5.0-8.0 PROTEIN UA (BEAKER) (test ynlo=225) Negative Negative GLUCOSE UA (BEAKER) (test cnef=000) Negative Negative KETONES UA (BEAKER) (test eqii=874) Negative Negative BILIRUBIN UA (BEAKER) (test lgjc=700) Negative Negative BLOOD UA (BEAKER) (test qcll=239) Small Negative NITRITE UA (BEAKER) (test tcyp=842) Positive Negative LEUKOCYTE ESTERASE UA (BEAKER) (test ztpz=496) Small Negative UROBILINOGEN UA (BEAKER) (test yrmz=645) 0.2 mg/dL 0.2-1.0 SOURCE(BEAKER) (test ufyt=8855) URINALYSIS [id number] 22:01:00* Test Item Value Reference Range Comments RBC UA-MANUAL (BEAKER) (test vjhj=7958) <5 /HPF WBC UA-MANUAL (BEAKER) (test elic=7631) <5 /HPF BACTERIA (BEAKER) (test gwsz=475) Rare SQUAMOUS EPITHELIAL MANUAL (BEAKER) (test hgbw=5448) <5 /HPF SCREEN, [id number] 22:00:00* Test Item Value Reference Range Comments TEST URINE (BEAKER) (test qlxd=418) Negative CBC W/PLT COUNT & AUTO [id number] 21:51:00* Test Item Value Reference Range Comments WHITE BLOOD CELL COUNT (BEAKER) (test tdht=784) 16.4 K/ L 4.0-10.0 RED BLOOD CELL COUNT (BEAKER) (test qfkh=129) 4.38 M/ L 4.00-5.00 HEMOGLOBIN (BEAKER) (test uxjf=703) 13.6 GM/DL 12.0-15.0 HEMATOCRIT (BEAKER) (test dfmx=067) 40.2 % 36.0-45.0 MEAN CORPUSCULAR VOLUME (BEAKER) (test fhcd=923) 91.8 fL 82.0-99.0 MEAN CORPUSCULAR HEMOGLOBIN (BEAKER) (test jwpp=520) 31.1 pg 27.0-33.0 MEAN CORPUSCULAR HEMOGLOBIN CONC (BEAKER) (test rmkz=939) 33.8 GM/DL 32.0-36.0 RED CELL DISTRIBUTION WIDTH (BEAKER) (test txvh=098) 15.9 % 10.3-14.2 PLATELET COUNT (BEAKER) (test thop=329) 270 K/CU MM 150-430 MEAN PLATELET VOLUME (BEAKER) (test yrgh=148) 9.0 fL 6.5-10.5 NUCLEATED RED BLOOD CELLS (BEAKER) (test mjbr=651) 0 /100 WBC 0-0 NEUTROPHILS RELATIVE PERCENT (BEAKER) (test jbnu=169) 64 % LYMPHOCYTES RELATIVE PERCENT (BEAKER) (test xegq=303) 28 % MONOCYTES RELATIVE PERCENT (BEAKER) (test gclv=009) 5 % EOSINOPHILS RELATIVE PERCENT (BEAKER) (test yyax=886) 2 % BASOPHILS RELATIVE PERCENT (BEAKER) (test ajvz=700) 1 % NEUTROPHILS ABSOLUTE COUNT (BEAKER) (test bibq=121) 10.53 K/ L 1.80-8.00 LYMPHOCYTES ABSOLUTE COUNT (BEAKER) (test jtzq=879) 4.55 K/ L 1.48-4.50 MONOCYTES ABSOLUTE COUNT (BEAKER) (test wvgl=658) 0.82 K/ L 0.00-1.30 EOSINOPHILS ABSOLUTE COUNT (BEAKER) (test mutv=604) 0.40 K/ L 0.00-0.50 BASOPHILS ABSOLUTE COUNT (BEAKER) (test ojvu=553) 0.10 K/ L 0.00-0.20 U/S, PELVIS, WITH ENDOVAG AND [id number] 14:55:00Reason for exam:-> HEMATURIA, history of bladder/uterus fistula s/p , excessive vaginal bl eedingReason for exam:->ABDOMINAL PAINFINAL REPORT PELVIC ULTRASOUND WITH ENDOVAGINAL STUDY, AND DOPPLER EVALUATION History provided: 12 weeks . Vaginal bleeding. Bladder injury associated with . FINDINGS: Transabdominal study supplemented with endovaginal exam. Grayscale, color Doppler, and spectral wave form analysis were performed. Uterus normal in size, measuring 7.7 cm from fundus to cervix, 5 cm in transverse dimension, and 4.4 cm in anterior-posterior dimension. There is nonspecific thickening of the endometrium to 1.8 cm, but no fluid is seen within the endometrial cavity. No further abnormalities are seen associated with the uterus, which is retroverted. The right ovary is normal in size, measuring 3. 2 x 2 CM, and shows no cystic or solid mass. Normal Doppler flow to the right ovary. Left ovary could not be visualized. No free pelvic fluid. IMPRESSION: Normal size uterus with thickened endometrium. Left ovary not visualized. Signed: Melida Chanel MDReport Verified Date/Time: 07/31/2017 14:55:44 Reading Location: [facility] Diagnostic Imaging Reading Room - [place] [address].12 ALYSIS W/ [id number] 12:45:00* Test Item Value Reference Range Comments COLOR (BEAKER) (test snqw=867) Yellow CLARITY (BEAKER) (test fotl=210) Hazy SPECIFIC GRAVITY UA (BEAKER) (test pyod=133) 1.020 1.001-1.035 PH UA (BEAKER) (test xwpj=938) 5.5 5.0-8.0 PROTEIN UA (BEAKER) (test rdtn=588) Negative Negative GLUCOSE UA (BEAKER) (test rzol=629) Negative Negative KETONES UA (BEAKER) (test qzhs=537) Negative Negative BILIRUBIN UA (BEAKER) (test kzdh=807) Negative Negative BLOOD UA (BEAKER) (test pbrp=716) Large Negative NITRITE UA (BEAKER) (test utfo=683) Positive Negative LEUKOCYTE ESTERASE UA (BEAKER) (test dfne=487) Moderate Negative UROBILINOGEN UA (BEAKER) (test tdfq=693) 0.2 mg/dL 0.2-1.0 BACTERIA (BEAKER) (test sstq=925) Moderate RBC UA-MANUAL (BEAKER) (test ydpa=8879) 20-50 /HPF WBC UA-MANUAL (BEAKER) (test mipd=4917) 20-50 /HPF SQUAMOUS EPITHELIAL MANUAL (BEAKER) (test lnyf=6675) <5 /HPF SOURCE(BEAKER) (test dxoq=9965) CBC W/PLT COUNT & AUTO [id number] 12:42:00* Test Item Value Reference Range Comments WHITE BLOOD CELL COUNT (BEAKER) (test lqah=577) 11.4 K/ L 4.0-10.0 RED BLOOD CELL COUNT (BEAKER) (test pspe=594) 4.69 M/ L 4.00-5.00 HEMOGLOBIN (BEAKER) (test dgxs=518) 14.6 GM/DL 12.0-15.0 HEMATOCRIT (BEAKER) (test fziq=065) 41.4 % 36.0-45.0 MEAN CORPUSCULAR VOLUME (BEAKER) (test fmcf=745) 88.3 fL 82.0-99.0 MEAN CORPUSCULAR HEMOGLOBIN (BEAKER) (test djxc=574) 31.1 pg 27.0-33.0 MEAN CORPUSCULAR HEMOGLOBIN CONC (BEAKER) (test cklu=898) 35.3 GM/DL 32.0-36.0 RED CELL DISTRIBUTION WIDTH (BEAKER) (test bfdb=162) 15.4 % 10.3-14.2 PLATELET COUNT (BEAKER) (test apxh=502) 264 K/CU MM 150-430 MEAN PLATELET VOLUME (BEAKER) (test gnid=570) 9.4 fL 6.5-10.5 NUCLEATED RED BLOOD CELLS (BEAKER) (test nzql=458) 0 /100 WBC 0-0 NEUTROPHILS RELATIVE PERCENT (BEAKER) (test cavl=067) 65 % LYMPHOCYTES RELATIVE PERCENT (BEAKER) (test tptx=280) 29 % MONOCYTES RELATIVE PERCENT (BEAKER) (test dtqs=392) 4 % EOSINOPHILS RELATIVE PERCENT (BEAKER) (test hvxo=467) 2 % BASOPHILS RELATIVE PERCENT (BEAKER) (test wkfa=493) 0 % NEUTROPHILS ABSOLUTE COUNT (BEAKER) (test gitk=078) 7.41 K/ L 1.80-8.00 LYMPHOCYTES ABSOLUTE COUNT (BEAKER) (test cejf=260) 3.28 K/ L 1.48-4.50 MONOCYTES ABSOLUTE COUNT (BEAKER) (test opph=308) 0.44 K/ L 0.00-1.30 EOSINOPHILS ABSOLUTE COUNT (BEAKER) (test jmcw=880) 0.26 K/ L 0.00-0.50 BASOPHILS ABSOLUTE COUNT (BEAKER) (test kxwp=213) 0.05 K/ L 0.00-0.20 URINALYSIS W/ [id number] 17:22:00* Test Item Value Reference Range Comments COLOR (BEAKER) (test stxr=760) Yellow CLARITY (BEAKER) (test vicb=715) Hazy SPECIFIC GRAVITY UA (BEAKER) (test xlda=962) 1.020 1.001-1.035 PH UA (BEAKER) (test wrhp=954) 5.5 5.0-8.0 PROTEIN UA (BEAKER) (test eqmk=663) Negative Negative GLUCOSE UA (BEAKER) (test kjvc=175) Negative Negative KETONES UA (BEAKER) (test ylhn=236) Negative Negative BILIRUBIN UA (BEAKER) (test nwfe=679) Negative Negative BLOOD UA (BEAKER) (test wjct=856) Large Negative NITRITE UA (BEAKER) (test ogqf=770) Negative Negative LEUKOCYTE ESTERASE UA (BEAKER) (test knzh=612) Trace Negative UROBILINOGEN UA (BEAKER) (test vekl=924) 0.2 mg/dL 0.2-1.0 BACTERIA (BEAKER) (test jvch=611) Many RBC UA-MANUAL (BEAKER) (test yrle=0899) 50-100 /HPF WBC UA-MANUAL (BEAKER) (test vnvs=4905) <5 /HPF SQUAMOUS EPITHELIAL MANUAL (BEAKER) (test qlib=2799) <5 /HPF SOURCE(BEAKER) (test rqlp=1814) TISSUE [id number] 11:29:00Surgical Pathology Report Case: [id number] Authorizing Provider: Carlos Meza, Collected: 05/06/2017 1831 Ordering Location: [facility] Labor & Delivery Received: 05/07/2017 1033 Pathologist: Billy Johnson MD Specimens: A) - Placenta B) - Fallopian Tube, Right C) - Fallopian Tube, Left A. PLACENTA, DELIVERY AT 37 WEEKS GESTATION:- UMBILICAL CORD: - NO SIGNIFICANT PATHOLOGIC CHANGE - TRIVASCULAR- MEMBRANES: NO SIGNIFICANT PATHOLOGIC CHANGE- PLACENTAL DISC: - WEIGHT: 421 GRAMS - EXPECTED WEIGHT AT 37 WEEKS GESTATION: 391 - 566 GRAMS (10TH - 90TH PERCENTILE) - APPROPRIATE FOR GESTATIONAL AGE - MATURE CHORIONIC VILLI CONSISTENT WITH THIRD TRIMESTER GESTATION - FOCAL PERIVILLOUS FIBRINOID DEPOSITION WITH SCATTERED CALCIFICATIONSB. FALLOPIAN TUBE, RIGHT, PARTIAL EXCISION FOR STERILIZATION:- NO SIGNIFICANT PATHOLOGIC CHANGE- COMPLETE SURGICAL TRANSECTIONC. FALLOPIAN TUBE, LEFT, SALPINGECTOMY FOR STERILIZATION:- NO SIGN IFICANT PATHOLOGIC CHANGE- COMPLETE SURGICAL TRANSECTION 55146, [address]5550 x2G6, P3, 37 weeks, m aternal diabetes, prematurity Placenta The paperwork, containers, and reav ettes are all labeled [id number].The specimen is received in formalin in three c ontainers labeled with the patient's name (SHANNA) and medical record number.A . Specimen is received in a formalin-filled container and labeled with the patie nt's information labeled "placenta" and consists of a 421 gm ponce placenta measuring 15.5 x 13 x 3 cm with an eccentrically inserting umbilical cord measur ing 18 cm in length x 1.5 cm in diameter inserting 4 cm from the placental edge. The umbilical cord is trivascular and off-white. The membranes are blue-p urple, transparent and insert marginally. The surface is blue-purple and g listening. The maternal surface has red-brown intact cotyledons with no abnormal ities. The placental parenchyma has red-brown spongy tissue with no lesions.Sect ion code: A1, umbilical cord; A2, membranes; A3-A5, placental disc. CG/ew B. The specimen labeled "FALLOPIAN TUBE, RIGHT" consists of a 1.8 X 0.9 X 0.7 cm portion of tissue, with a smooth, storm-pink serosal aspect. Cut sections reveal a pinpoint lumen. Transition Rn sections are submitted in a single cassette lab eled B1.C. The specimen labeled "FALLOPIAN TUBE, LEFT" consists of a 4.4 X 0.8 X 0.7 cm fimbriated fallopian tube, with a smooth, storm-pink serosal aspect. Cut s ections reveal a pinpoint lumen. Transition Rn sections are submitted in a sing le cassette labeled C1.Microscopic examination is performed and is incorporated in the diagnostic line.[facility], Department of Patholo gy, [address] [facility], [place] [address], [facility], [facility] of [facility]ology, [address] [place] [id number], [facility], Department of Patholo gy, [place] [address], OQKYQ METABOLIC [id number] 16:51:00* Test Item Value Reference Range Comments SODIUM (BEAKER) (test yusa=171) 139 meq/L 135-148 POTASSIUM (BEAKER) (test xjxo=009) 4.0 meq/L 3.6-5.5 CHLORIDE (BEAKER) (test mgmy=016) 104 meq/L 98-106 CO2 (BEAKER) (test bgph=554) 24 meq/L 20-29 BLOOD UREA NITROGEN (BEAKER) (test zkxl=519) 9 mg/dL 10-26 CREATININE (BEAKER) (test vzco=978) 1.06 mg/dL 0.50-1.20 GLUCOSE RANDOM (BEAKER) (test vzjb=216) 115 mg/dL 70-110 CALCIUM (BEAKER) (test qpvt=991) 8.8 mg/dL 8.5-10.5 EGFR (BEAKER) (test rbgi=3902) 57 mL/min/1.73 sq m ESTIMATED GFR IS NOT ACCURATE CREATININE CLEARANCE IN PREDICTING GLOMERULAR FILTRATION RATE. ESTIMATED GFR IS NOT APPLICABLE FOR DIALYSIS PATIENTS. CBC W/PLT COUNT & AUTO [id number] 16:38:00* Test Item Value Reference Range Comments WHITE BLOOD CELL COUNT (BEAKER) (test focu=106) 12.8 K/ L 4.0-10.0 RED BLOOD CELL COUNT (BEAKER) (test qmma=095) 3.17 M/ L 4.00-5.00 HEMOGLOBIN (BEAKER) (test yfva=507) 9.6 GM/DL 12.0-15.0 HEMATOCRIT (BEAKER) (test rqun=071) 30.3 % 36.0-45.0 MEAN CORPUSCULAR VOLUME (BEAKER) (test sjqm=699) 95.6 fL 82.0-99.0 MEAN CORPUSCULAR HEMOGLOBIN (BEAKER) (test ycqf=669) 30.3 pg 27.0-33.0 MEAN CORPUSCULAR HEMOGLOBIN CONC (BEAKER) (test zmtb=405) 31.7 GM/DL 32.0-36.0 RED CELL DISTRIBUTION WIDTH (BEAKER) (test plmj=013) 14.2 % 10.3-14.2 PLATELET COUNT (BEAKER) (test wnbr=192) 522 K/CU MM 150-430 MEAN PLATELET VOLUME (BEAKER) (test ncbq=798) 8.8 fL 6.5-10.5 NEUTROPHILS RELATIVE PERCENT (BEAKER) (test nsoj=297) 61 % LYMPHOCYTES RELATIVE PERCENT (BEAKER) (test ebdj=699) 25 % MONOCYTES RELATIVE PERCENT (BEAKER) (test wwpe=478) 8 % EOSINOPHILS RELATIVE PERCENT (BEAKER) (test infu=098) 5 % BASOPHILS RELATIVE PERCENT (BEAKER) (test wdgx=581) 2 % NEUTROPHILS ABSOLUTE COUNT (BEAKER) (test tvyf=336) 7.74 K/ L 1.50-10.30 LYMPHOCYTES ABSOLUTE COUNT (BEAKER) (test sfzm=952) 3.15 K/ L 1.48-4.50 MONOCYTES ABSOLUTE COUNT (BEAKER) (test votm=637) 1.01 K/ L 0.00-1.30 EOSINOPHILS ABSOLUTE COUNT (BEAKER) (test dmzc=218) 0.61 K/ L 0.00-0.50 BASOPHILS ABSOLUTE COUNT (BEAKER) (test xbcj=371) 0.24 K/ L 0.00-0.20 COMPREHENSIVE METABOLIC [id number] 15:14:00* Test Item Value Reference Range Comments TOTAL PROTEIN (BEAKER) (test mdkc=626) 6.7 gm/dL 6.0-8.5 ALBUMIN (BEAKER) (test kbcc=1241) 3.3 g/dL 3.5-5.0 ALKALINE PHOSPHATASE (BEAKER) (test tnpx=628) 97 U/L 30-115 BILIRUBIN TOTAL (BEAKER) (test otrg=674) 0.2 mg/dL 0.1-1.2 SODIUM (BEAKER) (test mdcc=636) 142 meq/L 135-148 POTASSIUM (BEAKER) (test bhta=800) 4.3 meq/L 3.6-5.5 CHLORIDE (BEAKER) (test bzcl=448) 107 meq/L 98-106 CO2 (BEAKER) (test ucjl=465) 24 meq/L 20-29 BLOOD UREA NITROGEN (BEAKER) (test wqfz=970) 11 mg/dL 10-26 CREATININE (BEAKER) (test htsx=192) 0.87 mg/dL 0.50-1.20 GLUCOSE RANDOM (BEAKER) (test wgxa=584) 91 mg/dL 70-110 CALCIUM (BEAKER) (test qjfc=403) 9.7 mg/dL 8.5-10.5 AST (SGOT) (BEAKER) (test nwxk=112) 11 U/L 5-40 ALT (SGPT) (BEAKER) (test ngkm=895) 8 U/L 5-50 EGFR (BEAKER) (test txez=6718) 72 mL/min/1.73 sq m ESTIMATED GFR IS NOT ACCURATE CREATININE CLEARANCE IN PREDICTING GLOMERULAR FILTRATION RATE. ESTIMATED GFR IS NOT APPLICABLE FOR DIALYSIS PATIENTS. [id number] 15:07:00* Test Item Value Reference Range Comments D-DIMER QUANTITATIVE (BEAKER) (test phrm=367) 2.42 MG/L FEU <0.50 REGARDING D-DIMER RESULTS: The 98% NPV (Negative Predictive Value) for DVT/PE ex clusion is 0.50 mg/L FEU as suggested by the freezer worker and as approved by the FDA.PROTHROMBIN TIME/[id number] 15:07:00* Test Item Value Reference Range Comments PROTIME (BEAKER) (test psyx=028) 10.0 seconds 9.8-12.0 INR (BEAKER) (test swgp=137) 1.0 <=5.9 RECOMMENDED COUMADIN/WARFARIN INR THERAPY RANGESSTANDARD DOSE: 2.0 - 3.0 Inclu kimberly: PROPHYLAXIS for venous thrombosis, systemic embolization; TREATMENT for mirtha ous thrombosis and/or pulmonary embolus.HIGH RISK: Target INR is 2.5-3.5 for pat ients with mechanical heart valves.URINALYSIS W/ REFLEX URINE [id number] 15:02:00* Test Item Value Reference Range Comments COLOR (BEAKER) (test paoo=108) Yellow CLARITY (BEAKER) (test obit=469) Cloudy SPECIFIC GRAVITY UA (BEAKER) (test grru=684) 1.025 1.001-1.035 PH UA (BEAKER) (test vlqu=690) 6.5 5.0-8.0 PROTEIN UA (BEAKER) (test tqze=054) >=300 mg/dL Negative GLUCOSE UA (BEAKER) (test akjq=829) Negative Negative KETONES UA (BEAKER) (test lldo=559) Negative Negative BILIRUBIN UA (BEAKER) (test exga=722) Negative Negative BLOOD UA (BEAKER) (test qmnz=108) Large Negative NITRITE UA (BEAKER) (test lcad=011) Negative Negative LEUKOCYTE ESTERASE UA (BEAKER) (test qawl=185) Large Negative UROBILINOGEN UA (BEAKER) (test hbzt=619) 0.2 mg/dL 0.2-1.0 BACTERIA (BEAKER) (test cvfs=626) Many RBC UA-MANUAL (BEAKER) (test yxed=2278) 5-10 /HPF WBC UA-MANUAL (BEAKER) (test razz=0949) 50-100 /HPF SQUAMOUS EPITHELIAL MANUAL (BEAKER) (test ueda=2394) None Seen /HPF SOURCE(BEAKER) (test fmyf=7923) CBC W/PLT COUNT & AUTO [id number] 14:56:00* Test Item Value Reference Range Comments WHITE BLOOD CELL COUNT (BEAKER) (test pmnj=514) 12.0 K/ L 4.0-10.0 RED BLOOD CELL COUNT (BEAKER) (test qhbk=553) 3.36 M/ L 4.00-5.00 HEMOGLOBIN (BEAKER) (test mjry=239) 10.5 GM/DL 12.0-15.0 HEMATOCRIT (BEAKER) (test bzij=101) 32.0 % 36.0-45.0 MEAN CORPUSCULAR VOLUME (BEAKER) (test jkfr=862) 95.2 fL 82.0-99.0 MEAN CORPUSCULAR HEMOGLOBIN (BEAKER) (test ycgl=590) 31.3 pg 27.0-33.0 MEAN CORPUSCULAR HEMOGLOBIN CONC (BEAKER) (test yfvj=597) 32.8 GM/DL 32.0-36.0 RED CELL DISTRIBUTION WIDTH (BEAKER) (test fdjy=224) 14.4 % 10.3-14.2 PLATELET COUNT (BEAKER) (test xfis=367) 506 K/CU MM 150-430 MEAN PLATELET VOLUME (BEAKER) (test chus=153) 8.8 fL 6.5-10.5 NUCLEATED RED BLOOD CELLS (BEAKER) (test gkhf=156) 0 /100 WBC 0-0 NEUTROPHILS RELATIVE PERCENT (BEAKER) (test xlrj=011) 59 % LYMPHOCYTES RELATIVE PERCENT (BEAKER) (test xzxe=488) 28 % MONOCYTES RELATIVE PERCENT (BEAKER) (test dykx=355) 6 % EOSINOPHILS RELATIVE PERCENT (BEAKER) (test vfdt=770) 6 % BASOPHILS RELATIVE PERCENT (BEAKER) (test cpgv=525) 1 % NEUTROPHILS ABSOLUTE COUNT (BEAKER) (test laan=189) 7.12 K/ L 1.80-8.00 LYMPHOCYTES ABSOLUTE COUNT (BEAKER) (test dlac=446) 3.35 K/ L 1.48-4.50 MONOCYTES ABSOLUTE COUNT (BEAKER) (test bdfz=876) 0.70 K/ L 0.00-1.30 EOSINOPHILS ABSOLUTE COUNT (BEAKER) (test nynw=081) 0.76 K/ L 0.00-0.50 BASOPHILS ABSOLUTE COUNT (BEAKER) (test yesu=478) 0.11 K/ L 0.00-0.20 LACTATE DEHYDROGENASE (LDH)2017-05-19 21:46:00* Test Item Value Reference Range Comments LACTATE DEHYDROGENASE (BEAKER) (test ysje=896) 303 U/L 107-206 Specimen slightly hemolyzed [id number] 21:43:00* Test Item Value Reference Range Comments PROTIME (BEAKER) (test tyog=807) 9.8 seconds 9.8-12.0 INR (BEAKER) (test qawa=234) 0.9 <=5.9 PARTIAL THROMBOPLASTIN TIME (BEAKER) (test jnrr=443) 27.0 seconds 25.8-34.5 RECOMMENDED COUMADIN/WARFARIN INR THERAPY RANGESSTANDARD DOSE: 2.0 - 3.0 Inclu kimberly: PROPHYLAXIS for venous thrombosis, systemic embolization; TREATMENT for mirtha ous thrombosis and/or pulmonary embolus.HIGH RISK: Target INR is 2.5-3.5 for pat ients with mechanical heart valves.COMPREHENSIVE METABOLIC [id number] 21:32:00* Test Item Value Reference Range Comments TOTAL PROTEIN (BEAKER) (test pchp=419) 7.3 gm/dL 6.0-8.5 Specimen slightly hemolyzed ALBUMIN (BEAKER) (test tetf=6999) 3.5 g/dL 3.5-5.0 Specimen slightly hemolyzed ALKALINE PHOSPHATASE (BEAKER) (test flga=863) 90 U/L 30-115 BILIRUBIN TOTAL (BEAKER) (test ttnl=773) 0.3 mg/dL 0.1-1.2 Specimen slightly hemolyzed SODIUM (BEAKER) (test junj=358) 140 meq/L 135-148 POTASSIUM (BEAKER) (test arhg=641) 4.0 meq/L 3.6-5.5 Specimen slightly hemolyzed CHLORIDE (BEAKER) (test glbw=957) 102 meq/L 98-106 CO2 (BEAKER) (test vbac=526) 22 meq/L 20-29 BLOOD UREA NITROGEN (BEAKER) (test twwa=425) 9 mg/dL 10-26 CREATININE (BEAKER) (test syts=946) 0.88 mg/dL 0.50-1.20 Specimen slightly hemolyzed GLUCOSE RANDOM (BEAKER) (test haqc=021) 79 mg/dL 70-110 CALCIUM (BEAKER) (test eren=362) 9.6 mg/dL 8.5-10.5 AST (SGOT) (BEAKER) (test fywa=688) 22 U/L 5-40 Specimen slightly hemolyzed ALT (SGPT) (BEAKER) (test xqem=377) 13 U/L 5-50 Specimen slightly hemolyzed EGFR (BEAKER) (test kbuw=4105) 71 mL/min/1.73 sq m ESTIMATED GFR IS NOT ACCURATE CREATININE CLEARANCE IN PREDICTING GLOMERULAR FILTRATION RATE. ESTIMATED GFR IS NOT APPLICABLE FOR DIALYSIS PATIENTS. URIC [id number] 21:32:00* Test Item Value Reference Range Comments URIC ACID (BEAKER) (test eiui=252) 7.2 mg/dL 2.5-8.0 Specimen slightly hemolyzed URINALYSIS W/ [id number] 21:19:00* Test Item Value Reference Range Comments COLOR (BEAKER) (test yeua=225) Yellow CLARITY (BEAKER) (test mqnv=257) Clear SPECIFIC GRAVITY UA (BEAKER) (test rpsj=276) 1.015 1.001-1.035 PH UA (BEAKER) (test xuks=441) 7.0 5.0-8.0 PROTEIN UA (BEAKER) (test uggk=998) 30 mg/dL Negative GLUCOSE UA (BEAKER) (test stjp=803) Negative Negative KETONES UA (BEAKER) (test qtmt=724) Negative Negative BILIRUBIN UA (BEAKER) (test maym=340) Negative Negative BLOOD UA (BEAKER) (test qccw=851) Moderate Negative NITRITE UA (BEAKER) (test isvi=400) Positive Negative LEUKOCYTE ESTERASE UA (BEAKER) (test lfyx=146) Moderate Negative UROBILINOGEN UA (BEAKER) (test lhpz=524) 0.2 mg/dL 0.2-1.0 BACTERIA (BEAKER) (test bqnh=490) Many RBC UA-MANUAL (BEAKER) (test ubje=3217) 5-10 /HPF WBC UA-MANUAL (BEAKER) (test odxv=7419) 10-20 /HPF SQUAMOUS EPITHELIAL MANUAL (BEAKER) (test cytf=6079) <5 /HPF SOURCE(BEAKER) (test djsf=8196) CBC W/PLT COUNT & AUTO [id number] 21:10:00* Test Item Value Reference Range Comments WHITE BLOOD CELL COUNT (BEAKER) (test pbnp=737) 16.7 K/ L 4.0-10.0 RED BLOOD CELL COUNT (BEAKER) (test cpzh=443) 3.28 M/ L 4.00-5.00 HEMOGLOBIN (BEAKER) (test avsv=276) 10.5 GM/DL 12.0-15.0 HEMATOCRIT (BEAKER) (test krfj=847) 31.5 % 36.0-45.0 MEAN CORPUSCULAR VOLUME (BEAKER) (test gaqd=232) 96.0 fL 82.0-99.0 MEAN CORPUSCULAR HEMOGLOBIN (BEAKER) (test ntbj=966) 32.0 pg 27.0-33.0 MEAN CORPUSCULAR HEMOGLOBIN CONC (BEAKER) (test xukb=612) 33.3 GM/DL 32.0-36.0 RED CELL DISTRIBUTION WIDTH (BEAKER) (test yrnx=082) 14.4 % 10.3-14.2 PLATELET COUNT (BEAKER) (test stfe=586) 557 K/CU MM 150-430 MEAN PLATELET VOLUME (BEAKER) (test bkqc=588) 8.8 fL 6.5-10.5 NUCLEATED RED BLOOD CELLS (BEAKER) (test djbd=286) 0 /100 WBC 0-0 NEUTROPHILS RELATIVE PERCENT (BEAKER) (test ferg=306) 68 % LYMPHOCYTES RELATIVE PERCENT (BEAKER) (test snjy=525) 20 % MONOCYTES RELATIVE PERCENT (BEAKER) (test cgvm=560) 5 % EOSINOPHILS RELATIVE PERCENT (BEAKER) (test nrqo=625) 6 % BASOPHILS RELATIVE PERCENT (BEAKER) (test smpx=181) 1 % NEUTROPHILS ABSOLUTE COUNT (BEAKER) (test oyts=923) 11.42 K/ L 1.80-8.00 LYMPHOCYTES ABSOLUTE COUNT (BEAKER) (test ptqy=715) 3.32 K/ L 1.48-4.50 MONOCYTES ABSOLUTE COUNT (BEAKER) (test wour=666) 0.85 K/ L 0.00-1.30 EOSINOPHILS ABSOLUTE COUNT (BEAKER) (test oizo=461) 0.93 K/ L 0.00-0.50 BASOPHILS ABSOLUTE COUNT (BEAKER) (test doix=788) 0.16 K/ L 0.00-0.20 POCT-GLUCOSE [id number] 10:30:00* Test Item Value Reference Range Comments POC-GLUCOSE METER (BEAKER) (test qcgz=9954) 148 mg/dL 70-110 TESTED AT [address] [place] [address] POCT-GLUCOSE [id number] 05:49:00* Test Item Value Reference Range Comments POC-GLUCOSE METER (BEAKER) (test mewq=0246) 100 mg/dL 70-110 TESTED AT [address] [place] [address] POCT-GLUCOSE [id number] 21:10:00* Test Item Value Reference Range Comments POC-GLUCOSE METER (BEAKER) (test ticj=3661) 113 mg/dL 70-110 TESTED AT [place] [address] [place] [address] POCT-GLUCOSE [id number] 17:42:00* Test Item Value Reference Range Comments POC-GLUCOSE METER (BEAKER) (test cwlf=9840) 101 mg/dL 70-110 TESTED AT [place] [address] [place] [address] POCT-GLUCOSE [id number] 05:19:00* Test Item Value Reference Range Comments POC-GLUCOSE METER (BEAKER) (test euts=6553) 93 mg/dL 70-110 TESTED AT [place] [address] [place] [address] POCT-GLUCOSE [id number] 21:12:00* Test Item Value Reference Range Comments POC-GLUCOSE METER (BEAKER) (test uzur=2388) 122 mg/dL 70-110 TESTED AT [facility] [address] [place] [address] POCT-GLUCOSE [id number] 16:00:00* Test Item Value Reference Range Comments POC-GLUCOSE METER (BEAKER) (test qoai=0620) 119 mg/dL 70-110 TESTED AT [place] [address] [place] [address] POCT-GLUCOSE [id number] 12:30:00* Test Item Value Reference Range Comments POC-GLUCOSE METER (BEAKER) (test dvpn=4850) 182 mg/dL 70-110 TESTED AT [place] [address] [place] [address] POCT-GLUCOSE [id number] 07:42:00* Test Item Value Reference Range Comments POC-GLUCOSE METER (BEAKER) (test isbu=0712) 123 mg/dL 70-110 TESTED AT [facility] [address] [place] [address] POCT-GLUCOSE [id number] 21:16:00* Test Item Value Reference Range Comments POC-GLUCOSE METER (BEAKER) (test rmvf=5734) 133 mg/dL 70-110 TESTED AT [facility] [address] [place] [address] POCT-GLUCOSE [id number] 19:04:00* Test Item Value Reference Range Comments POC-GLUCOSE METER (BEAKER) (test mqpp=5396) 127 mg/dL 70-110 TESTED AT [facility] [address] [place] [address] POCT-GLUCOSE [id number] 13:02:00* Test Item Value Reference Range Comments POC-GLUCOSE METER (BEAKER) (test qsvo=9852) 113 mg/dL 70-110 TESTED AT [facility] [address] [place] [address] POCT-GLUCOSE [id number] 05:59:00* Test Item Value Reference Range Comments POC-GLUCOSE METER (BEAKER) (test cexn=1197) 149 mg/dL 70-110 TESTED AT [place] [address] [place] [address] (MANUAL DIFFERENTIAL)2017-05-09 19:59:00* Test Item Value Reference Range Comments NEUTROPHILS - REL (DIFF) (BEAKER) (test jmoz=8021) 79 % LYMPHOCYTES - REL (DIFF) (BEAKER) (test edlv=3233) 6 % MONOCYTES - REL (DIFF) (BEAKER) (test lryd=2102) 3 % EOSINOPHILS - REL (DIFF) (BEAKER) (test oxun=2448) 3 % BASOPHILS - REL (DIFF) (BEAKER) (test kehz=5188) 1 % PROMYELOCYTES-REL (DIFF) (BEAKER) (test wtfa=564) 1 % 0-0 BANDS - REL (DIFF) (BEAKER) (test mtbl=3994) 7 % 0-10 NEUTROPHILS - ABS (DIFF) (BEAKER) (test sggn=6344) 10.98 K/ L 1.80-8.00 LYMPHOCYTES - ABS (DIFF) (BEAKER) (test gwxa=2026) 0.83 K/ L 1.48-4.50 MONOCYTES - ABS (DIFF) (BEAKER) (test vqza=3214) 0.42 K/ L 0.00-1.30 EOSINOPHILS - ABS (DIFF) (BEAKER) (test wyrv=7996) 0.42 K/ L 0.00-0.50 BASOPHILS - ABS (DIFF) (BEAKER) (test dbfy=1031) 0.14 K/ L 0.00-0.20 PROMYELOCYTES - ABS (DIFF) (BEAKER) (test dusk=221) 0.14 K/ L 0.00-0.00 BANDS-ABS (DIFF) (BEAKER) (test nouq=7984) 1.0 K/ L 0.0-0.8 TOTAL COUNTED (BEAKER) (test ufgj=5928) 100 BANDS + SEGMENTED NEUTROPHILS (BEAKER) (test czua=4121) 11.95 WBC MORPHOLOGY (BEAKER) (test bcwt=840) Normal PLT MORPHOLOGY (BEAKER) (test sowr=402) Normal ANISOCYTOSIS (BEAKER) (test mnkq=333) 1+ few POLYCHROMATOPHILLIC RBCS(BEAKER) (test jkvw=590) 1+ few CBC W/PLT COUNT & AUTO [id number] 19:58:00* Test Item Value Reference Range Comments WHITE BLOOD CELL COUNT (BEAKER) (test cfln=474) 13.9 K/ L 4.0-10.0 RED BLOOD CELL COUNT (BEAKER) (test imkp=424) 3.06 M/ L 4.00-5.00 HEMOGLOBIN (BEAKER) (test zkci=507) 9.9 GM/DL 12.0-15.0 HEMATOCRIT (BEAKER) (test ubic=396) 30.2 % 36.0-45.0 MEAN CORPUSCULAR VOLUME (BEAKER) (test jscs=346) 98.7 fL 82.0-99.0 MEAN CORPUSCULAR HEMOGLOBIN (BEAKER) (test jjij=197) 32.4 pg 27.0-33.0 MEAN CORPUSCULAR HEMOGLOBIN CONC (BEAKER) (test mzzy=221) 32.8 GM/DL 32.0-36.0 RED CELL DISTRIBUTION WIDTH (BEAKER) (test yett=892) 15.7 % 10.3-14.2 PLATELET COUNT (BEAKER) (test pxik=855) 248 K/CU MM 150-430 MEAN PLATELET VOLUME (BEAKER) (test orie=732) 9.2 fL 6.5-10.5 POCT-GLUCOSE [id number] 17:43:00* Test Item Value Reference Range Comments POC-GLUCOSE METER (BEAKER) (test mcwk=7613) 127 mg/dL 70-110 TESTED AT [facility] [place] [address] POCT-GLUCOSE [id number] 17:09:00* Test Item Value Reference Range Comments POC-GLUCOSE METER (BEAKER) (test bsgq=1347) 152 mg/dL 70-110 TESTED AT [facility] [place] [address] BASIC METABOLIC [id number] 16:29:00* Test Item Value Reference Range Comments SODIUM (BEAKER) (test wwhd=342) 140 meq/L 135-148 POTASSIUM (BEAKER) (test lybd=352) 4.0 meq/L 3.6-5.5 CHLORIDE (BEAKER) (test agsx=294) 108 meq/L 98-106 CO2 (BEAKER) (test axhk=429) 19 meq/L 20-29 BLOOD UREA NITROGEN (BEAKER) (test hekc=442) 10 mg/dL 10-26 CREATININE (BEAKER) (test sthr=465) 0.89 mg/dL 0.50-1.20 GLUCOSE RANDOM (BEAKER) (test iyqm=366) 91 mg/dL 70-110 CALCIUM (BEAKER) (test esgx=362) 8.7 mg/dL 8.5-10.5 EGFR (BEAKER) (test ekxs=3743) 70 mL/min/1.73 sq m ESTIMATED GFR IS NOT ACCURATE CREATININE CLEARANCE IN PREDICTING GLOMERULAR FILTRATION RATE. ESTIMATED GFR IS NOT APPLICABLE FOR DIALYSIS PATIENTS. CREATININE, BODY [id number] 12:03:00* Test Item Value Reference Range Comments CREATININE FLUID (BEAKER) (test etui=289) > mg/dL Reference Range: No Normals Assay performance has not been validated for this type of specimen.[id number] 21:28:00* Test Item Value Reference Range Comments CREATININE (BEAKER) (test hslt=469) 0.70 mg/dL 0.50-1.20 EGFR (BEAKER) (test scor=9494) 93 mL/min/1.73 sq m ESTIMATED GFR IS NOT ACCURATE CREATININE CLEARANCE IN PREDICTING GLOMERULAR FILTRATION RATE. ESTIMATED GFR IS NOT APPLICABLE FOR DIALYSIS PATIENTS. Drainage fluid from JPPOCT-GLUCOSE [id number] 22:35:00* Test Item Value Reference Range Comments POC-GLUCOSE METER (BEAKER) (test yodz=8608) 186 mg/dL 70-110 TESTED AT [facility] [place] [address] POCT-GLUCOSE [id number] 21:05:00* Test Item Value Reference Range Comments POC-GLUCOSE METER (BEAKER) (test rxae=1823) 170 mg/dL 70-110 TESTED AT [facility] [place] [address] POCT-GLUCOSE [id number] 15:23:00* Test Item Value Reference Range Comments POC-GLUCOSE METER (BEAKER) (test rhjy=0138) 157 mg/dL 70-110 TESTED AT [facility] [place] [address] [id number] 10:12:00* Test Item Value Reference Range Comments RPR SCREEN (BEAKER) (test yeus=847) Nonreactive Nonreactive CBC (HEMOGRAM ONLY)2017-05-07 07:09:00* Test Item Value Reference Range Comments WHITE BLOOD CELL COUNT (BEAKER) (test cfyf=017) 18.5 K/ L 4.0-10.0 RED BLOOD CELL COUNT (BEAKER) (test rhfq=949) 2.94 M/ L 4.00-5.00 HEMOGLOBIN (BEAKER) (test radj=125) 9.7 GM/DL 12.0-15.0 HEMATOCRIT (BEAKER) (test nurf=506) 28.1 % 36.0-45.0 MEAN CORPUSCULAR VOLUME (BEAKER) (test idat=494) 95.6 fL 82.0-99.0 MEAN CORPUSCULAR HEMOGLOBIN (BEAKER) (test kfjd=343) 33.0 pg 27.0-33.0 MEAN CORPUSCULAR HEMOGLOBIN CONC (BEAKER) (test jsrf=683) 34.5 GM/DL 32.0-36.0 RED CELL DISTRIBUTION WIDTH (BEAKER) (test zxau=667) 15.4 % 10.3-14.2 PLATELET COUNT (BEAKER) (test thxh=970) 196 K/CU MM 150-430 MEAN PLATELET VOLUME (BEAKER) (test xmws=014) 9.4 fL 6.5-10.5 NUCLEATED RED BLOOD CELLS (BEAKER) (test ufaw=267) 0 /100 WBC 0-0 CBC W/PLT COUNT & AUTO [id number] 23:27:00* Test Item Value Reference Range Comments WHITE BLOOD CELL COUNT (BEAKER) (test hlsr=321) 23.4 K/ L 4.0-10.0 RED BLOOD CELL COUNT (BEAKER) (test wicm=075) 3.53 M/ L 4.00-5.00 HEMOGLOBIN (BEAKER) (test riob=520) 11.8 GM/DL 12.0-15.0 HEMATOCRIT (BEAKER) (test egiw=800) 33.3 % 36.0-45.0 MEAN CORPUSCULAR VOLUME (BEAKER) (test updx=238) 94.3 fL 82.0-99.0 MEAN CORPUSCULAR HEMOGLOBIN (BEAKER) (test geno=296) 33.4 pg 27.0-33.0 MEAN CORPUSCULAR HEMOGLOBIN CONC (BEAKER) (test swry=353) 35.4 GM/DL 32.0-36.0 RED CELL DISTRIBUTION WIDTH (BEAKER) (test xpcr=088) 15.2 % 10.3-14.2 PLATELET COUNT (BEAKER) (test pwde=971) 242 K/CU MM 150-430 MEAN PLATELET VOLUME (BEAKER) (test ferg=507) 9.4 fL 6.5-10.5 NUCLEATED RED BLOOD CELLS (BEAKER) (test dllt=664) 0 /100 WBC 0-0 (MANUAL DIFFERENTIAL)2017-05-06 23:27:00* Test Item Value Reference Range Comments NEUTROPHILS - REL (DIFF) (BEAKER) (test laer=0291) 68 % LYMPHOCYTES - REL (DIFF) (BEAKER) (test gkia=2781) 5 % MONOCYTES - REL (DIFF) (BEAKER) (test rppm=5213) 2 % BANDS - REL (DIFF) (BEAKER) (test kpnl=9508) 25 % 0-10 NEUTROPHILS - ABS (DIFF) (BEAKER) (test wcyj=0683) 15.91 K/ L 1.80-8.00 LYMPHOCYTES - ABS (DIFF) (BEAKER) (test icbz=5618) 1.17 K/ L 1.48-4.50 MONOCYTES - ABS (DIFF) (BEAKER) (test nymf=9367) 0.47 K/ L 0.00-1.30 BANDS-ABS (DIFF) (BEAKER) (test stym=4475) 5.9 K/ L 0.0-0.8 TOTAL COUNTED (BEAKER) (test qgtz=6550) 100 BANDS + SEGMENTED NEUTROPHILS (BEAKER) (test lvsz=8215) 21.76 WBC MORPHOLOGY (BEAKER) (test udqp=995) Normal PLT MORPHOLOGY (BEAKER) (test qrto=398) Normal RBC MORPHOLOGY (BEAKER) (test vluz=601) Normal COMPREHENSIVE METABOLIC [id number] 23:27:00* Test Item Value Reference Range Comments TOTAL PROTEIN (BEAKER) (test jdgc=351) 5.3 gm/dL 6.0-8.5 ALBUMIN (BEAKER) (test nasc=5907) 2.7 g/dL 3.5-5.0 ALKALINE PHOSPHATASE (BEAKER) (test qnvx=428) 111 U/L 30-115 BILIRUBIN TOTAL (BEAKER) (test yukg=931) 0.5 mg/dL 0.1-1.2 SODIUM (BEAKER) (test umvb=467) 134 meq/L 135-148 POTASSIUM (BEAKER) (test dzus=245) 4.2 meq/L 3.6-5.5 CHLORIDE (BEAKER) (test vvde=099) 107 meq/L 98-106 CO2 (BEAKER) (test vnfw=150) 17 meq/L 20-29 BLOOD UREA NITROGEN (BEAKER) (test lcws=879) 8 mg/dL 10-26 CREATININE (BEAKER) (test katw=410) 0.64 mg/dL 0.50-1.20 GLUCOSE RANDOM (BEAKER) (test hvgh=962) 134 mg/dL 70-110 CALCIUM (BEAKER) (test zcnh=731) 8.6 mg/dL 8.5-10.5 AST (SGOT) (BEAKER) (test rqpu=428) 22 U/L 5-40 ALT (SGPT) (BEAKER) (test vxlo=321) 7 U/L 5-50 EGFR (BEAKER) (test bztj=3900) 103 mL/min/1.73 sq m ESTIMATED GFR IS NOT ACCURATE CREATININE CLEARANCE IN PREDICTING GLOMERULAR FILTRATION RATE. ESTIMATED GFR IS NOT APPLICABLE FOR DIALYSIS PATIENTS. POCT-GLUCOSE [id number] 18:36:00* Test Item Value Reference Range Comments POC-GLUCOSE METER (BEAKER) (test cdzs=4256) 71 mg/dL 70-110 TESTED AT [facility] [address] [place] [address] HEPATITIS B SURFACE [id number] 13:14:00* Test Item Value Reference Range Comments HEPATITIS B SURFACE ANTIGEN (2) (BEAKER) (test jzff=2799) Nonreactive Nonreactive CBC W/PLT COUNT & AUTO [id number] 12:39:00* Test Item Value Reference Range Comments WHITE BLOOD CELL COUNT (BEAKER) (test bhwk=234) 12.0 K/ L 4.0-10.0 RED BLOOD CELL COUNT (BEAKER) (test vidw=025) 3.95 M/ L 4.00-5.00 HEMOGLOBIN (BEAKER) (test cnxk=586) 13.0 GM/DL 12.0-15.0 HEMATOCRIT (BEAKER) (test brps=534) 37.1 % 36.0-45.0 MEAN CORPUSCULAR VOLUME (BEAKER) (test ntop=964) 93.9 fL 82.0-99.0 MEAN CORPUSCULAR HEMOGLOBIN (BEAKER) (test hbor=728) 32.9 pg 27.0-33.0 MEAN CORPUSCULAR HEMOGLOBIN CONC (BEAKER) (test bdxn=051) 35.0 GM/DL 32.0-36.0 RED CELL DISTRIBUTION WIDTH (BEAKER) (test vqkw=218) 15.1 % 10.3-14.2 PLATELET COUNT (BEAKER) (test xxeu=155) 289 K/CU MM 150-430 MEAN PLATELET VOLUME (BEAKER) (test qzng=153) 9.7 fL 6.5-10.5 NUCLEATED RED BLOOD CELLS (BEAKER) (test uasj=256) 0 /100 WBC 0-0 NEUTROPHILS RELATIVE PERCENT (BEAKER) (test pzlw=851) 75 % LYMPHOCYTES RELATIVE PERCENT (BEAKER) (test jwar=757) 19 % MONOCYTES RELATIVE PERCENT (BEAKER) (test goew=053) 5 % EOSINOPHILS RELATIVE PERCENT (BEAKER) (test zdqq=697) 1 % BASOPHILS RELATIVE PERCENT (BEAKER) (test braa=088) 0 % NEUTROPHILS ABSOLUTE COUNT (BEAKER) (test ibkl=702) 8.99 K/ L 1.80-8.00 LYMPHOCYTES ABSOLUTE COUNT (BEAKER) (test diaz=376) 2.23 K/ L 1.48-4.50 MONOCYTES ABSOLUTE COUNT (BEAKER) (test xhmp=586) 0.63 K/ L 0.00-1.30 EOSINOPHILS ABSOLUTE COUNT (BEAKER) (test gynf=323) 0.10 K/ L 0.00-0.50 BASOPHILS ABSOLUTE COUNT (BEAKER) (test uyzb=298) 0.04 K/ L 0.00-0.20 URINALYSIS W/ REFLEX URINE [id number] 19:55:00* Test Item Value Reference Range Comments COLOR (BEAKER) (test axrm=655) Yellow CLARITY (BEAKER) (test uavo=136) Hazy SPECIFIC GRAVITY UA (BEAKER) (test ktnw=806) 1.025 1.001-1.035 PH UA (BEAKER) (test odaw=905) 6.0 5.0-8.0 PROTEIN UA (BEAKER) (test wagt=524) Trace Negative GLUCOSE UA (BEAKER) (test efsr=704) Negative Negative KETONES UA (BEAKER) (test tkzl=540) 15 mg/dL Negative BILIRUBIN UA (BEAKER) (test zbbf=764) Negative Negative BLOOD UA (BEAKER) (test huox=166) Negative Negative NITRITE UA (BEAKER) (test rugo=383) Negative Negative LEUKOCYTE ESTERASE UA (BEAKER) (test syrl=784) Negative Negative UROBILINOGEN UA (BEAKER) (test lpbe=768) 0.2 mg/dL 0.2-1.0 BACTERIA (BEAKER) (test jwaw=683) Moderate MUCUS (BEAKER) (test dzpo=2881) Moderate CALCIUM OXALATE CRYSTALS (BEAKER) (test ytoa=473) Many RBC UA-MANUAL (BEAKER) (test ioyu=8787) <5 /HPF WBC UA-MANUAL (BEAKER) (test yaax=2579) <5 /HPF SQUAMOUS EPITHELIAL MANUAL (BEAKER) (test lmhg=4950) 20-50 /HPF SOURCE(BEAKER) (test uaej=1829) URINALYSIS W/ [id number] 00:26:00* Test Item Value Reference Range Comments COLOR (BEAKER) (test sbqf=258) Yellow CLARITY (BEAKER) (test ertd=871) Clear SPECIFIC GRAVITY UA (BEAKER) (test ecwk=028) 1.015 1.001-1.035 PH UA (BEAKER) (test xdaq=857) 6.0 5.0-8.0 PROTEIN UA (BEAKER) (test slyg=520) Negative Negative GLUCOSE UA (BEAKER) (test pisp=819) Negative Negative KETONES UA (BEAKER) (test tauq=520) Negative Negative BILIRUBIN UA (BEAKER) (test mkjr=347) Negative Negative BLOOD UA (BEAKER) (test ovoq=705) Negative Negative NITRITE UA (BEAKER) (test adry=946) Negative Negative LEUKOCYTE ESTERASE UA (BEAKER) (test wlyw=246) Negative Negative UROBILINOGEN UA (BEAKER) (test ufjo=419) 0.2 mg/dL 0.2-1.0 BACTERIA (BEAKER) (test uqvj=855) Few RBC UA-MANUAL (BEAKER) (test woki=7024) <5 /HPF WBC UA-MANUAL (BEAKER) (test cpuj=6865) None Seen /HPF SQUAMOUS EPITHELIAL MANUAL (BEAKER) (test uimt=7056) None Seen /HPF SOURCE(BEAKER) (test dsko=0907) COMPREHENSIVE METABOLIC [id number] 13:26:00* Test Item Value Reference Range Comments TOTAL PROTEIN (BEAKER) (test cvqd=504) 6.2 gm/dL 6.0-8.5 ALBUMIN (BEAKER) (test ohnx=2481) 3.2 g/dL 3.5-5.0 ALKALINE PHOSPHATASE (BEAKER) (test judd=891) 73 U/L 30-115 BILIRUBIN TOTAL (BEAKER) (test hkcb=605) 0.3 mg/dL 0.1-1.2 SODIUM (BEAKER) (test nfgm=151) 138 meq/L 135-148 POTASSIUM (BEAKER) (test yhfp=285) 3.8 meq/L 3.6-5.5 CHLORIDE (BEAKER) (test ghlc=537) 107 meq/L 98-106 CO2 (BEAKER) (test gixi=675) 19 meq/L 20-29 BLOOD UREA NITROGEN (BEAKER) (test etru=223) 6 mg/dL 10-26 CREATININE (BEAKER) (test iqyz=839) 0.57 mg/dL 0.50-1.20 GLUCOSE RANDOM (BEAKER) (test dehb=646) 96 mg/dL 70-110 CALCIUM (BEAKER) (test mogx=070) 9.2 mg/dL 8.5-10.5 AST (SGOT) (BEAKER) (test aoce=994) 12 U/L 5-40 ALT (SGPT) (BEAKER) (test zbsq=628) 10 U/L 5-50 EGFR (BEAKER) (test ijml=8771) 117 mL/min/1.73 sq m ESTIMATED GFR IS NOT ACCURATE CREATININE CLEARANCE IN PREDICTING GLOMERULAR FILTRATION RATE. ESTIMATED GFR IS NOT APPLICABLE FOR DIALYSIS PATIENTS. [id number] 13:11:00* Test Item Value Reference Range Comments LIPASE (BEAKER) (test gmdv=821) 29 U/L 6-51 [id number] 13:11:00* Test Item Value Reference Range Comments AMYLASE (BEAKER) (test qdyq=867) 44 U/L 30-110 CBC (HEMOGRAM ONLY)2017-03-22 12:58:00* Test Item Value Reference Range Comments WHITE BLOOD CELL COUNT (BEAKER) (test lurw=854) 13.4 K/ L 4.0-10.0 RED BLOOD CELL COUNT (BEAKER) (test lyhs=175) 3.76 M/ L 4.00-5.00 HEMOGLOBIN (BEAKER) (test phvm=825) 12.1 GM/DL 12.0-15.0 HEMATOCRIT (BEAKER) (test kqhp=582) 35.2 % 36.0-45.0 MEAN CORPUSCULAR VOLUME (BEAKER) (test mjrl=565) 93.6 fL 82.0-99.0 MEAN CORPUSCULAR HEMOGLOBIN (BEAKER) (test dpdp=277) 32.2 pg 27.0-33.0 MEAN CORPUSCULAR HEMOGLOBIN CONC (BEAKER) (test boqv=812) 34.4 GM/DL 32.0-36.0 RED CELL DISTRIBUTION WIDTH (BEAKER) (test vggy=853) 14.7 % 10.3-14.2 PLATELET COUNT (BEAKER) (test hnnu=277) 266 K/CU MM 150-430 MEAN PLATELET VOLUME (BEAKER) (test eprx=774) 8.9 fL 6.5-10.5 NUCLEATED RED BLOOD CELLS (BEAKER) (test muvi=699) 0 /100 WBC 0-0 URINALYSIS W/ [id number] 12:56:00* Test Item Value Reference Range Comments COLOR (BEAKER) (test vcdf=475) Yellow CLARITY (BEAKER) (test esob=742) Hazy SPECIFIC GRAVITY UA (BEAKER) (test sywr=441) 1.020 1.001-1.035 PH UA (BEAKER) (test hqns=336) 6.0 5.0-8.0 PROTEIN UA (BEAKER) (test ikjv=758) Negative Negative GLUCOSE UA (BEAKER) (test qayp=994) 500 mg/dL Negative KETONES UA (BEAKER) (test ekbj=538) 15 mg/dL Negative BILIRUBIN UA (BEAKER) (test msah=459) Negative Negative BLOOD UA (BEAKER) (test ohkk=172) Negative Negative NITRITE UA (BEAKER) (test kaur=638) Negative Negative LEUKOCYTE ESTERASE UA (BEAKER) (test ykno=345) Negative Negative UROBILINOGEN UA (BEAKER) (test vush=478) 0.2 mg/dL 0.2-1.0 BACTERIA (BEAKER) (test rlgp=284) Moderate RBC UA-MANUAL (BEAKER) (test dqff=8090) <5 /HPF WBC UA-MANUAL (BEAKER) (test vvyq=4510) <5 /HPF SQUAMOUS EPITHELIAL MANUAL (BEAKER) (test dund=7059) 5-10 /HPF SOURCE(BEAKER) (test nzzv=9363)
[2019-03-07] MEDS ORDERED: VANCOMYCIN 1GM/NS 250 ML 250 ML ONE (09:13)
[2019-03-07] MEDS ORDERED: MORPHINE SULFATE 2 MG/ML SYR 1ML IV PRN (11:15)
[2019-03-07] MEDS ORDERED: SCOPOLAMINE 1.5 MG PATCH TOP SCH (12:00)
[2019-03-07] MEDS ORDERED: ACETAMINOPHEN 1000 MG/100 ML 100 ML IV ONE (12:05)
--- NOTE | 2019-03-07 12:10 | NUR ---
REC'D PT FROM OR. PT ON ROOM AIR, NO S/S OF DISTRESS. FLUIDS RUNNING. IV 20 GAUGE R HAND AND NO COMPLICATIONS TO SITE. SIDE RAILS UP X2, BED IN LOWEST POSITION, AND CALL [facility] WITHIN REACH. PAIN LEVEL 9/10.
[2019-03-07] MEDS ORDERED: FENTANYL CITRATE/PF 100MCG/2 ML INJ ONE ×2 (12:36→18:02)
[2019-03-07] MEDS ORDERED: ONDANSETRON HCL INJ 2MG/ML 2ML 2 MG/ML VIAL ONE ×2 (12:47→17:58)
[2019-03-07] MEDS ORDERED: METOCLOPRAMIDE HCL 10 MG/2ML VIAL ONE (12:47)
[2019-03-07] MEDS ORDERED: PROMETHAZINE HCL (IM) 25 MG/ML VIAL ONE (12:55)
--- OUTSIDE RECORDS SUMMARY | 2019-03-07 13:00 | XMS REPORT | Clinical Summary ---
Author Author Warner Islam Organization [facility]end[facility] Islam Address Unknown Phone Unavailable Care Team Providers Care Receiving Lead Name Role Phone Asked, No Pcp PCP [...] MMODE SPECTRAL 9:16 AM CDT COLOR DOPPLER ([id number]) HCG QUALITATIVE, URINE Routine 12/29/2018 SCREEN 4:27 [...] included. WBC 10.13 4.50 - 11.00 k/uL [facility] RBC 4.06 (L) 4.20 - 5.50 m/uL [facility] HGB 12.2 12.0 - 16.0 g/dL [facility] HCT 37.6 37.0 - 47.0 % [facility] MCV 92.6 82.0 - 100.0 fL [facility] MCH 30.0 27.0 - 34.0 pg [facility] MCHC 32.4 31.0 - 37.0 g/dL [facility] RDW - SD 49.7 37.0 - 55.0 fL [facility] MPV 9.9 8.8 - 13.2 fL [facility] Platelet count 232 150 - 400 k/uL [facility] Nucleated RBC 0.00 /100 WBC [facility] Neutrophils 54.1 39.0 - 69.0 % [facility] Lymphocytes 34.7 25.0 - 45.0 % [facility] Monocytes 5.6 0.0 - 10.0 % [facility] Eosinophils 3.4 0.0 - 5.0 % [facility] Basophils 0.7 0.0 - 1.0 % [facility] Specimen Blood Performing Organization Address City/State/Zipcode Phone Number [facility] [place] [place] [id number] [place] [address] [place] [address] PATHOLOGY AND GENOMIC MEDICINE [facility] [address] [address] * CT Internal Auditory Canals / [...] 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 [facility]-[id number] Performing Organization Address City/State/Zipcode Phone Number [facility] [address] [place] [address] * Echocardiogram complete w contrast and 3D [...] LV EF,BP 62.73 % [facility] [place] Ry Mcgrew,d A2C 6.85 cm [facility] [place] Ry Mcgrew,d A4C 7.57 cm HM [place] Ry Mcgrew,s A2C 6.05 cm [facility] [place] Ry [place],s A4C 6.15 cm HM [place] LV,s 2.55 [...] i VTI 1.73 cm2/m2 [facility] [place] LV SI MOD BP 21.97 ml/m2 [facility] [place] LV Vol Index s 35.02 ml/m2 [facility] [place] bpmod [place] PV Vmn 13.05 m/s [facility] BMI [...] Performing Organization Address City/State/Zipcode Phone Number SYNGO [address] [place] [address] * Urinalysis screen and microscopy, with reflex to culture (12/29/2018 4:27 PM CDT) Specimen site Clean catch [facility] Color, UA Yellow [facility] Appearance, UA Slightly-Cloudy [facility] Specific 1.023 1.001 - 1.035 [place] gravity, UA [facility] pH, UA 6.0 5.0 - 8.5 [facility] Protein, UA Negative Negative [facility] Glucose, UA Negative Negative [facility] Ketones, UA Negative Negative [facility] Bilirubin, UA Negative Negative [facility] Blood, UA Small (A) Negative [facility] Nitrite, UA Negative Negative [facility] Urobilinogen, Negative <2.0 [facility] Leukocyte Negative Negative [place] esterase, UA [facility] Epithelial Many /HPF [place] cells, UA [facility] WBC, UA 0-5 0 - 4 /HPF [facility] RBC, UA 11-20 (H) 0 - 5 /HPF [facility] Bacteria, UA None seen None seen [facility] Yeast, UA None seen [facility] Yeast with None seen [place] [facility] Specimen Urine Performing Organization Address [facility] Phone Number [address] [place] [address] PATHOLOGY AND GENOMIC MEDICINE [address] * hCG qualitative, urine screen (12/29/2018 4:27 PM CDT) hCG Negative Negative [place] qualitative, Comment: [facility] urine The manufacturers stated [facility] sensitivity of HcG test for serum is >/=10 mIU/ml and urine is >/=20mIU/ml. Specimen Urine Performing Organization Address [facility] Phone Number [address] [place] [address] PATHOLOGY AND GENOMIC MEDICINE [address] * Urine culture (12/29/2018 4:27 PM CDT) Urine culture SEE COMMENTComment: [place] Bacteriuria screen negative. [facility] Specimen Urine Performing Organization Address City/State/Zipcode [place] [address] [place] [address] PATHOLOGY AND GENOMIC MEDICINE [facility] [address] [place] [address] [facility] * CT Angiogram Pe Chest (12/29/2018 3:52 PM CDT) Specimen Narrative Performed At [facility]IN[facility] PE CHEST CLINICAL HISTORY: hx [...] acute pulmonary embolus or other acute finding. [id number] Procedure Note Interface, Radiology Results Incoming - [...] acute pulmonary embolus or other acute finding. [id number] Performing Organization Address City/State/Zipcode Phone Number RADIDEANNA [address] [place] [address] * CT Head Wo Contrast (12/29/2018 3:52 PM CDT) Specimen Narrative Performed At Examination: CT HEAD WO CONTRAST [facility] Clinical History: persistent vertigo Comparison: NONE Technique: [...] 1. There Is no acute intracranial abnormality. [id number] Procedure Note Interface, Radiology Results Incoming - [...] 1. There Is no acute intracranial abnormality. [id number] Performing Organization Address City/State/Zipcode Phone Number [facility] [address] [place] [address] * Respiratory pathogen panel (12/29/2018 3:18 PM CDT) Pathologist [facility] Respiratory Negative for all pathogens [place] pathogen panel tested: JUDAISM Negative for Adenovirus [facility] Negative for Coronavirus HKU1 Negative for Coronavirus [...] Left Performing Organization Address City/State/Zipcode Phone Number [facility] DEPARTMENT OF [address] [place] [address] PATHOLOGY AND GENOMIC MEDICINE [address] * Influenza antigen test, reflex negative to RPP (12/29/2018 3:18 PM CDT) Pathologist [facility] Influenza Negative for Influenza A/B [place] antigen antigen. [facility] Comment: [facility] Specimen Information Specimen Source: Nares Specimen Site: Left Specimen Nares - Left Performing Organization Address City/State/Zipcode Phone Number [facility] [place] [place] [id number] [place] [address] [place] [address] PATHOLOGY AND GENOMIC MEDICINE [facility] [id number] [place] [address] [place] [address] [facility] * Estimated GFR (12/29/2018 2:49 PM CDT) Only the most recent of 2 results within the time period is included. [facility] Estimated GFR 79 mL/min/1.73 m2 [place] Comment: CH[facility] OlearyUndianeUnc [facility] Springsashley [facility] rpretation G1 >=90 Normal or high G2 60-89Mildly decreased [id number] Mildly to moderately decreased [id number] Moderately to severely decreased G4 15-29Severely decreased G5 <15Kidney failure The eGFR was calculated using the Chronic Kidney Disease Epidemiology Collaboration (CKD-EPI) equation. Interpretation is based on recommendations of the National Kidney Foundation-Kidney Disease Outcomes Quality Initiative (NKF-KDOQI) published in 2014. Specimen Plasma specimen Performing Organization Address [facility] Phone Number [address] [place] [address] PATHOLOGY AND [facility] MEDICINE [address] * Troponin (12/29/2018 2:49 PM CDT) Only the most recent of 3 results within the time period is included. [facility] Troponin <0.300 0.000 - 0.300 ng/mL [place] Comment: [facility] 0.30 - 1.49 [facility] ng/mlMay indicate increased risk of acute coronary syndrome. >=1.5 ng/ml Consistent with acute myocardial infarction. The diagnostic value of a single normal or non-diagnostic result is questionable.Serial samples at 2-6 hour intervals are required to rule out acute myocardial injury. Specimen Plasma specimen Performing Organization Address [facility] Phone Number [address] [place] [address] PATHOLOGY AND GENOMIC MEDICINE [address] * Partial thromboplastin time, activated (12/29/2018 2:49 PM CDT) Only the most recent of 2 results within the time period is included. [facility] PTT 26.7 23.0 - 36.0 sec [place] Comment: JUDAISM PTT therapeutic range for [facility] unfractionated heparin is 61.0-112.0 seconds which corresponds to Anti-Xa 0.3-0.7 U/ml. Specimen Blood Performing Organization Address [facility] Phone Number [address] [place] [address] PATHOLOGY AND [facility]IC[facility] [address] * Prothrombin time with INR (12/29/2018 2:49 PM CDT) Only the most recent of 2 results within the time period is included. Prothrombin 15.8 (H) 11.5 - 14.5 sec [facility] INR 1.3 WARNER Comment: [facility] Normalized [facility] Ratio (INR) is a therapeutic monitoring tool for patients who are stable on oral anticoagulant therapy. An INR of 2.0-3.0 is suggested for deep vein thrombosis/pulmonary embolism. Specimen Blood Performing Organization Address [facility] Phone Number [address] [place] [address] PATHOLOGY [address] * B natriuretic peptide (12/29/2018 2:49 PM CDT) Only the most recent of 2 results within the time period is included. Pathologist [facility] BNP 3 0 - 100 pg/mL [facility] Specimen Blood Performing Organization Address [facility] Phone Number [address] [place] [address] PATHOLOGY [address] * Creatine kinase, total (CPK) (12/29/2018 2:49 PM CDT) Only the most recent of 2 results within the time period is included. Creatine kinase 427 (H) 26 - 192 U/L [facility] Specimen Plasma specimen Performing Organization Address City/[facility] Phone Number [address] [place] [address] PATHOLOGY AND [address] * Comprehensive metabolic panel (12/29/2018 2:49 PM CDT) Only the most recent of 2 results within the time period is included. Sodium 138 135 - 148 mEq/L [facility] Potassium 4.0 3.5 - 5.0 mEq/L [facility] Chloride 104 98 - 112 mEq/L [facility] CO2 22 (L) 24 - 31 mEq/L [facility] Anion gap 12@ANIO 7 - 15 mEq/L [facility] BUN 10 6 - 20 mg/dL [facility] Creatinine 0.90 0.50 - 0.90 mg/dL [facility] Glucose 92 65 - 99 mg/dL [facility] Calcium 9.5 8.3 - 10.2 mg/dL [facility] Protein 7.6 6.3 - 8.3 g/dL [place] Comment: [facility] 4.6-7.0 g/dL 1 week 4.4-7.6 g/dL 7 months-1year 5.1-7.3 g/dL 1-2 years5.6-7 .5 g/dL >3 years6.0-8 .0 g/dL 18-150 6.3-8.3 g/dL Albumin 4.0 3.5 - 5.0 g/dL [facility] A/G ratio 1.1 0.7 - 3.8 [facility] Alkaline 77 35 - 104 U/L [place] phosphatase [facility] AST 78 (H) 10 - 35 U/L [facility] ALT 42 5 - 50 U/L [facility] Total bilirubin 0.5 0.0 - 1.2 mg/dL [facility] Specimen Plasma specimen Performing Organization Address City/State/Zipcode Phone Number [facility] [id number] [place] [address] [place] [address] PATHOLOGY AND GENOMIC MEDICINE [address] * ECG ED Preliminary Interpretation - [...] ED Physician in the absence of a water pump assembler: yes Previous ECG: Previous ECG:Compared to current [...] MUSE rate Atrial rate 76 [facility] MUSE RI interval 138 [facility] MUSE QRSD interval 72 [...] At Performing Organization Address City/State/Zipcode Phone Number [facility] [address] [place] [address] * D-dimer (07/22/2018 12:35 PM CDT) D-dimer <0.27 0.00 - 0.40 ug/mL [facility] Comment: FEU DEPARTMENT OF Units are ug/ml [...] Address City/State/Zipcode [place] [address] [address] [place] [address] PATHOLOGY AND GENOMIC MEDICINE * XR Chest 1 Vw Portable (07/22/2018 12:00 PM CDT) Specimen Narrative Performed At EXAMINATION:XR CHEST 1 VW PORTABLE [facility] CLINICAL HISTORY:chest pain COMPARISON:03/16/2014 IMPRESSION: The lungs and pleural spaces are clear.The cardiomediastinal silhouette is within normal limits.There is no significant skeletal finding. [id number] Procedure Note Hm Interface, Radiology Results Incoming - 07/22/2018 12:47 PM CDT EXAMINATION: XR CHEST 1 VW PORTABLE CLINICAL HISTORY: chest pain COMPARISON: 03/16/2014 IMPRESSION: The lungs and pleural spaces are clear. The cardiomediastinal silhouette is within normal limits. There is no significant skeletal finding. [id number] Performing Organization Address City/[facility]/Zipcode Phone Number [facility] [address] [place] [address] after 03/06/2018 Insurance Type Payer Benefit Subscriber ID Effective Phone Address Plan / Dates Group HMO CIGELIZABETH CIGELIZABETH OPEN xxxxxxxxxxx 2016-P ACCESS/NET resent WORK Guarantor Name Account Relation to Date of Phone Billing Address Type Patient ELLIE BRADSHAW Personal/F 1975 [facility] [place] [address] ([place]) [place] [address] Advance Directives Patient has advance care planning documents on file. For more information, pepe ramirez contact: Timmy Do [address] [place] [address]
--- OUTSIDE RECORDS SUMMARY | 2019-03-07 13:00 | XMS REPORT | Clinical Summary ---
Author Author FAHAD [facility] Address Unknown Phone Unavailable Care Team Providers Care Crochet Beader Name Role Phone Sharpless PCP Allergies Comments Active Allergy Reactions Severity Noted Date Sulfamethoxazole-Trimetho Hives High 11/02/2016 prim Ciprofloxacin Anaphylaxis High 11/02/2016 Crab Swelling 03/22/2017 Morphine Hives 09/13/2017 Penicillins Hives High 10/22/2016 Ceftriaxone Hives 11/05/2016 Sulfa (Sulfonamide Hives 03/22/2017 Antibiotics) Medications End Date Status Medication Sig Dispensed Refills Start Date Active vitamin Take 1 tablet 0 w/aweyhde-vwte-gsdfto by mouth ( PLUS) 27 mg daily. [...] Advance Directives For more information, please contact: [facility] [address] [place] [phone] Date Inactivated Comments Code Status Date [...]
--- NOTE | 2019-03-07 15:23 | History and Physical ---
CHIEF COMPLAINT: "I underwent weight loss surgery today." HISTORY OF PRESENT ILLNESS: This is a 43-year-old white woman, who has history of extreme obesity and depression. The patient underwent successful laparoscopic sleeve gastrectomy today. Surgery was performed by Dr. Oli Olsen. The patient also has underlying history of depression and migraine headaches. The patient states at this time she is experiencing intense nausea, but no vomiting. REVIEW OF SYSTEMS: GENERAL: Weight has been stable. No fever or chills. HEENT: The patient states she does have a history of chronic migraine headaches. No visual changes. CARDIOVASCULAR/RESPIRATORY: No chest pain. No shortness breath or cough. GI: Complains of nausea. No vomiting at this time. : No UTI symptoms. Mello catheter is in place. NEUROMUSCULAR: No limb weakness or numbness. ALLERGIES: 1. PENICILLIN. 2. CEFTRIAXONE. 3. CIPROFLOXACIN. 4. LEVOFLOXACIN. 5. SULFAMETHOXAZOLE. 6. TRIMETHOPRIM. FAMILY HISTORY: Father had pancreatitis and a stroke. Mother had lung cancer. SOCIAL HISTORY: She is . She is a homemaker. No history of tobacco use. Drinks alcohol rarely. The patient states in the past she did take hydrocodone 1-3 pills a day for pain. PAST SURGICAL HISTORY: 1. section three times. 2. Cholecystectomy. 3. Right ankle surgery. 4. Diagnostic laparoscopy. PAST MEDICAL HISTORY: 1. Extreme obesity. 2. GERD. 3. Migraine headaches. 4. Depression. 5. Anxiety disorder. 6. History of recurrent pulmonary emboli. 7. History of miscarriages. HOME MEDICATIONS: 1. BuSpar 15 mg b.i.d. 2. Diazepam 5 mg once daily as needed for anxiety. 3. Flonase one spray each nostril daily. 4. Pantoprazole 40 mg daily. 5. Sertraline 100 mg b.i.d. 6. Topiramate 25 mg daily. 7. Trazodone 100 mg daily. PHYSICAL EXAMINATION: GENERAL: She is somnolent, but arousable. She is currently in the postanesthesia care unit. VITAL SIGNS: Height 5 feet 3 inches, weight 224 pounds, BMI is 40. Blood pressure is 110/64, pulse is 72, respiratory rate is 16, and oxygen saturation is 95% on room air. She is afebrile. INTEGUMENT: Skin is warm and dry. No pallor, jaundice, or diaphoresis. HEENT: Anicteric sclerae. Moist mucous membranes. The patient is edentulous. NECK: Supple. CARDIOVASCULAR: Distant heart sounds. Regular rate and rhythm. LUNGS: No rales. No rhonchi or wheezes. ABDOMEN: Soft. Laparoscopic incisions of the abdomen are clean, dry, and intact. EXTREMITIES: No edema or deformity. She is currently wearing sequential compression devices. NEUROLOGIC: Intact. DIAGNOSES: 1. Extreme obesity, BMI 40. 2. Status post laparoscopic sleeve gastrectomy. 3. Major depressive disorder. 4. Migraine headaches. PLAN: 1. We will continue home psychotropic medications. 2. Encourage incentive spirometer use to prevent atelectasis. 3. Mobilize the patient. 4. Follow hemoglobin and hematocrit. 5. Follow renal function and electrolytes. 6. Pain control. 7. Antiemetics. I spent 40 minutes in the care of this patient. MD MARKEL Hubbard/KAMILA /[id number] MTDPeter
[2019-03-07 15:31] VITALS: BP 109/68
[2019-03-07] MEDS: ONDANSETRON HCL INJ 2MG/ML 2ML 2 MG/ML VIAL IV PRN ×2 (16:30→22:30)
[2019-03-07] MEDS: LACTATED RINGER'S 1,000 ML IV SCH ×2 (16:30→20:24)
[2019-03-07] MEDS: MORPHINE SULFATE INJ 4 MG/ML INJ 1ML IV PRN ×3 (16:30→22:30)
[2019-03-07] MEDS: BUSPIRONE HCL 5 MG TAB PO SCH (16:53)
[2019-03-07] MEDS: SERTRALINE HCL 50 MG TAB PO SCH (16:53)
[2019-03-07] MEDS ORDERED: PROPOFOL IV EMULSION 10 MG/ML 20 ML VIAL ONE (17:58)
[2019-03-07] MEDS ORDERED: NEOSTIGMINE 5 MG/5ML SYR ONE (17:58)
[2019-03-07] MEDS ORDERED: ROCURONIUM BROMIDE 10 MG/ML 5ML VIAL ONE (17:58)
[2019-03-07] MEDS ORDERED: DESFLURANE 240 ML BTL INH ONE (17:58)
[2019-03-07] MEDS ORDERED: DEXAMETHASONE SOD PHOS INJ 4 MG/ML VIAL ONE (17:58)
[2019-03-07] MEDS ORDERED: LIDOCAINE HCL 2% LOCAL INJ 5 ML SDV VIAL INJ ONE (17:58)
[2019-03-07] MEDS ORDERED: GLYCOPYRROLATE INJ 1MG/ 5 ML SYR ONE (17:58)
[2019-03-07] MEDS ORDERED: SEVOFLURANE INHAL SOLN 250 ML PEN BTL ONE (17:58)
[2019-03-07] MEDS ORDERED: MIDAZOLAM HCL 2 MG/2 ML VIAL ONE (18:02)
--- NOTE | 2019-03-07 18:58 | NUR ---
PT IS RESTING IN BED QUIETLY, CHEST RISING UP AND DOWN. BED IN LOWEST POSITION, CALL JHAVERI WITHIN REACH, AND SIDE RAILS UP X2.
--- NOTE | 2019-03-07 19:20 | NUR ---
PATIENT RECEIVED. PATIENT IS RESTING IN BED, AAOX3. RESP EVEN AND UNLABORED. NO ACUTE DISTRESS NOTED. CALL LIGHT WITHIN REACH. BED LOW/LOCKED. CONTINUE TO MONITOR CLOSELY
--- NOTE | 2019-03-07 19:39 | Operative Report ---
DATE OF PROCEDURE: 03/07/2019 SURGEON: Oli Olsen MD PREOPERATIVE DIAGNOSES: 1. Morbid obesity, BMI of 39. 2. Hypertension. 3. Gastroesophageal reflux disease. 4. History of pulmonary embolism. POSTOPERATIVE DIAGNOSES: 1. Morbid obesity, BMI of 39. 2. Hypertension. 3. Gastroesophageal reflux disease. 4. History of pulmonary embolism. PREOPERATIVE INDICATIONS: Treat disease, prevent complications related to comorbid conditions of obesity. PROCEDURE: Laparoscopic vertical sleeve gastrectomy. ANESTHESIA: General. FEATHER EDGER: Tre Pearce, players assistant (needed due to complexity of case). FLUIDS: 300 mL of crystalloid. ESTIMATED BLOOD LOSS: 50 mL. DRAINS: None. COMPLICATIONS: None. SPECIMENS: Partial stomach. FINDIN. Normal upper GI anatomy. 2. Negative intraoperative EGD leak test. GRAFTS: None. PROCEDURE IN DETAIL: The patient was brought to the operating room and was intubated under general endotracheal anesthesia. She was sterilely prepped and draped in the usual fashion. She was positioned supine with both arms abducted and all pressure points were appropriately padded. A preprocedure pause was performed. We then gained access through the peritoneal cavity using a 5 mm left subcostal incision using the Veress needle. Four additional trocars were placed in standard position. A liver retractor was used to expose the stomach. Of note, the liver was quite large and was bulky. The greater curvature of the stomach was mobilized using [place] LigaSure device from about 3 cm proximal to the pyloric valve to the left conrad of the diaphragm. An adult-sized endoscope was then placed along the lesser curvature of the stomach to be used as a Bougie. The greater curvature of the stomach was resected using multiple firings of a Endo GI 60 mm purple load Covidien stapling device, which was reinforced with SeamGuard. A leak test was performed under saline, no leaks were identified. Specimen had a small polyp on it, this was removed through the right periumbilical port site and sent off to pathology. The port site was closed with 0-Vicryl suture using Theo-Sincere technique in a zhfyya-vs-zxrog fashion. We then verified hemostasis, removed the liver retractor, desufflated the abdomen, and removed the trocars. We then closed the incision sites with 4-0 Monocryl suture in subcuticular fashion. Dermabond dressings were applied. A 30 mL of 0.25% Bupivacaine was used both at the preperitoneal and incisional sites. All surgical sponges and instrument counts were correct. The patient tolerated the procedure well. Type of wound is type 3, clean and contaminant. MD NICHOLAS Armijo/KAMILA /[id number]
[2019-03-07 20:00] VITALS: BP 138/77
[2019-03-07] MEDS ORDERED: TRAZODONE HCL 50 MG TAB PO SCH (21:00)
[2019-03-07] MEDS: ENOXAPARIN SOD INJ 40 MG/0.4 ML SYR SC SCH (21:10)
--- NOTE | 2019-03-07 21:40 | NUR ---
WALKED PATIENT TO THE BRASHER. PATIENT TOLERATED WELL
[2019-03-08] VITALS (7 sets, daily range): BP systolic 113–136; BP diastolic 57–73
--- NOTE | 2019-03-08 04:40 | NUR ---
WALKED PATIENT TO THE BRASHER. PATIENT TOLERATED WELL
[2019-03-08] MEDS: MORPHINE SULFATE INJ 4 MG/ML INJ 1ML IV PRN ×3 (05:31→17:00)
[2019-03-08] MEDS: ONDANSETRON HCL INJ 2MG/ML 2ML 2 MG/ML VIAL IV PRN ×2 (05:31→10:50)
[2019-03-08 05:35] LABS: BASOPHILS # (AUTO) 0.1 (0.0-0.1); BASOPHILS % 0.4 % (0.0-1.0); EOSINOPHILS % 0.1 % (0.0-6.0); HEMATOCRIT 38.9 % (34.2-44.1); HEMOGLOBIN 12.4 g/dL (12.0-16.0); LYMPHOCYTES # (AUTO) 3.2 (1.0-3.2); LYMPHOCYTES % 19.5 % (18.0-39.1); MEAN CORPUSCULAR HEMOGLOBIN 29.2 pg (28-32); MEAN CORPUSCULAR HGB CONC 31.9 g/dL (31-35); MEAN CORPUSCULAR VOLUME 91.5 fL (81-99); MONOCYTES # (AUTO) 0.7 (0.2-0.8); MONOCYTES % 4.2 % (4.4-11.3); NEUTROPHILS # (AUTO) 11.9 (2.1-6.9); NEUTROPHILS % 74.1 % (38.7-80.0); PLATELET COUNT 266 x10e3/uL (140-360); RED BLOOD COUNT 4.25 x10e6/uL (3.6-5.1); RED CELL DISTRIBUTION WIDTH 15.6 % (11.7-14.4)
[2019-03-08] MEDS: LACTATED RINGER'S 1,000 ML IV SCH ×2 (05:48→11:15)
[2019-03-08 05:54] LABS: ALANINE AMINOTRANSFERASE 74 IU/L (0-55); ALBUMIN 3.5 g/dL (3.5-5.0); ALKALINE PHOSPHATASE 57 IU/L (40-150); ANION GAP 11.5 mmol/L (8-16); BLOOD UREA NITROGEN 7 mg/dL (7-26); BUN/CREATININE RATIO 9 (6-25); CARBON DIOXIDE 25 mmol/L (22-29); CHLORIDE 104 mmol/L (98-107); CREATININE, SERUM 0.81 mg/dL (0.57-1.11); EST GLOMERULAR FILTRATION RATE > 60 ML/MIN (60-); GLUCOSE 86 mg/dL (74-118); MAGNESIUM 2.2 MG/DL (1.3-2.1); PHOSPHORUS 2.7 MG/DL (2.3-4.7); POTASSIUM 3.5 mmol/L (3.5-5.1); SODIUM 137 mmol/L (136-145)
[2019-03-08] MEDS ORDERED: PANTOPRAZOLE SOD 40 MG TABEC PO SCH (06:00)
[2019-03-08] MEDS ORDERED: HYDROCODONE/APAP 7.5MG-325MG 1 EA TAB PO PRN (07:15)
[2019-03-08] MEDS: BUSPIRONE HCL 5 MG TAB PO SCH ×2 (08:04→17:08)
[2019-03-08] MEDS: SERTRALINE HCL 50 MG TAB PO SCH ×2 (08:04→17:08)
[2019-03-08] MEDS: ENOXAPARIN SOD INJ 40 MG/0.4 ML SYR SC SCH ×2 (08:05→17:08)
[2019-03-08] MEDS ORDERED: TOPIRAMATE 25 MG TAB PO SCH (09:00)
[2019-03-08] MEDS ORDERED: DIAZEPAM 5 MG TAB PO SCH ×2 (09:00→12:15)
[2019-03-08] MEDS ORDERED: POTASSIUM CHLORIDE 10MEQ EA PO ONE (10:00)
--- NOTE | 2019-03-08 10:28 | Discharge Summary ---
ADMISSION DIAGNOSES: 1. Extreme obesity, BMI 40. 2. Major depressive disorder. 3. Migraine headaches. 4. History of recurrent pulmonary emboli. DISCHARGE DIAGNOSES: 1. Status post laparoscopic sleeve gastrectomy. 2. Extreme obesity, BMI 40. 3. Major depressive disorder. 4. Migraine headaches. 5. History of recurrent pulmonary emboli, now resolved. HOSPITAL COURSE: This is a 43-year-old white woman who was admitted to [facility] with a diagnosis of extreme obesity. During this hospitalization, the patient underwent successful laparoscopic sleeve gastrectomy, that was performed by her bariatric surgeon, namely Dr. Oli Olsen. The patient does have a history of recurrent pulmonary emboli and did receive enoxaparin subcutaneously postoperatively and then twice a day thereafter for deep venous thrombosis and pulmonary embolism prophylaxis. The patient's hospitalization was unremarkable. On discharge, she was tolerating a clear liquid diet. I did recommend the patient that she stay on long-term anticoagulation therapy since she has history of pulmonary emboli on 2 different occasions as well as history of miscarriages. The patient states that youth care professional wanted the patient to take a break from anticoagulation and then be reassessed. CONDITION ON DISCHARGE: Stable. DISCHARGE MEDICATIONS: 1. Enoxaparin 40 mg subcutaneous twice a day for 2 more weeks. 2. BuSpar 50 mg b.i.d. 3. Diazepam 5 mg a day for anxiety. 4. Flonase 1 spray to each nostril daily. 5. Pantoprazole 40 mg daily. 6. Sertraline 100 mg b.i.d. 7. Topiramate 25 mg daily. 8. Trazodone 100 mg at bedtime. 9. Tylenol No. 3 one pill every 4 hours p.r.n. pain, 25 prescribed, no refills. 10. Zofran 4 mg every 6 hours p.r.n. nausea or vomiting, #20 prescribed, no refills. FOLLOWUP INSTRUCTIONS: The patient will follow up with Dr. Oli Olsen in 1 week and with her primary care physician in 2 weeks. I also recommended that the patient to follow up with the youth care professional as soon as possible since I do believe she should be on long- term anticoagulation therapy, particularly since she has had 2 bouts of pulmonary emboli and since she has had miscarriages. Jameson E MD MARKEL Deleon/KAMILA /[id number] cc: Oli Olsen MD MTDD
--- NOTE | 2019-03-08 10:54 | NUR ---
Patient OOB and ambulated in the room and sitting on chair at this time, medicated for pain and nausea, still having some nausea, will monitor.
--- NOTE | 2019-03-08 12:06 | NUR ---
PROGRESS NOTE S: No major issues O: AF, VSS General- no distress Abdomen- soft, incisions c/d/i A/P: POD 1, s/p Lap sleeve gastrectomy -Clears, ambulate, dc home today -f/u in 1 week in clinic -instructions given for post op diet
[2019-03-08] MEDS ORDERED: DIAZEPAM 5 MG TAB PO PRN (12:30)
[2019-03-08] MEDS ORDERED: TYLENOL WITH C1 EACH PO (13:11)
[2019-03-08] MEDS ORDERED: ZOFRAN4 MG PO (13:12)
--- NOTE | 2019-03-08 14:50 | NUR ---
Visit made by the Spiritual Care Department Pastoral Visitor, Pebbles Rosa. PV provided pastoral presence, prayer, hospitality, and supportive listening. Pastoral Visitor informed pt/family of the scope of [facility] and availability. TATIANA [employer] Spiritual Care Department O: [phone] Pager: [phone] ([phone] number calling from)
--- NOTE | 2019-03-08 15:39 | NUR ---
Nutrition Screen Note RD Recommendation for Physician: - Advance diet per MD - Diet education provided 03/08 Plan of Care: RD following, monitoring for tolerance and adequacy Nutrition reason for involvement: MD Consult- bariatric diet education Primary Diagnose(s):admitted for gastric sleeve surgery PMH: no H&P Ht: 63 in Wt: 220 lb BMI: 39 kg/m2 IBW: [address] Assessment: (03/08) 43 YOF admitted for gastric sleeve surgery, seen today for MD consult for diet education. Pt discussed during am rounds, POD#1 with plan for D/C tomorrow. Pt reports ongoing post-operative nausea, she was able to tolerate a few bites of jello this am. Pt reports that she has been seen by outpatient RD for diet education and is familiar with the diet progression. Pt given bariatric diet handouts emphasizing CL, full liquid, and pureed diet progression as well as prtoein supplement recommendations. Chart reviewed. Labs and meds reviewed. Current Diet: CL, bariatric Malnutrition Evaluation (03/08/19) The patient does not meet criteria for a specified degree of malnutrition at this time. Will re-evaluate at follow-up as appropriate. Diet Education Needs Assessment: Diet education indicated, pt receptive. Learner(s): pt Barriers: none Cultural/Language Modifications: none Readiness: ready Method: handouts, discussion Topics: progression of diet post gastric sleeve placement Understanding/Compliance: good Nutrition Care Level: Low Signed: Marie Boone RD, LD, [facility]
--- NOTE | 2019-03-08 16:00 | NUR ---
Patient discharged and waiting for her right per Dr. Gray orders.
--- NOTE | 2019-03-08 17:15 | NUR ---
Medicated patient with morphine for pain and a little later patient c/o some rash to right hand and some red spots. Call to Dr. Deleon at this time for orders.
[2019-03-08] MEDS ORDERED: DIPHENHYDRAMINE HCL INJ 50 MG/ML VIAL IV NR (17:45)
--- NOTE | 2019-03-08 18:36 | NUR ---
Patient feels better, redness and rash to right arm resolving, OOB and ambulating and waiting for her ride to pick her up
--- NOTE | 2019-03-08 19:20 | NUR ---
RECEIVED PATIENT AAOX3. STATES SHE IS WAITING ON RIDE, DISCHARGE ORDERS RECEIVED EARLIER IN DAY. INSTRUCTED TO CALL WHEN RIDE HAS ARRIVED. WILL CONTINUE TO MONITOR THE PATIENT.
--- NOTE | 2019-03-08 20:39 | NUR ---
PATIENT DISCHARGED HOME IN STABLE CONDITION, VSS WNL. LEFT VIA WHEELCHAIR TO PRIVATE AUTO. IV TO LEFT HAND REMOVED WITH CATHETER TIP INTACT. PRESSURE HELD, PRESSURE DRESSING APPLIED.
== END 2019-03-08 20:10 | disposition home or self-care (01) | DRG 621 ==
LOC: OR 08:40 → PACU V 12:55 → MED/SURG 13:55
PROVIDERS: ADMIT Internal Medicine; ATTEND Internal Medicine
PROC: 0DB64Z3 Excision of Stomach, Percutaneous Endoscopic Approach, Vertical (ICD-10-PCS; principal; 2019-03-07 11:00)
DX: E66.01 Morbid (severe) obesity due to excess calories (principal); K21.9 Gastro-esophageal reflux disease without esophagitis; I10 Essential (primary) hypertension; Z86.711 Personal history of pulmonary embolism; Z79.01 Long term (current) use of anticoagulants; K76.0 Fatty (change of) liver, not elsewhere classified; F32.9 Major depressive disorder, single episode, unspecified; R51 Headache; Z68.41 Body mass index [BMI] 40.0-44.9, adult; F41.9 Anxiety disorder, unspecified
CPT/HCPCS: 36415; 43235; 80053; 81025; 83735; 84100; 85025; 88307; J1100; J1200; J1650; J2001; J2250; J2270; J2405; J2550; J2765; J3370; J7121